=== PATIENT | female | born 1945 | race Caucasian/White ===

== ENCOUNTER → 2016-12-03 | Outpatient (CLI) | payer MEDICARE | END | disposition home or self-care (01) | LOC: LABWHC1 11:04 | PROVIDERS: ATTEND Orthopaedic Surgery | DX: Z01.812 Encounter for preprocedural laboratory examination (principal) | CPT/HCPCS: 87070 ==

== ENCOUNTER 2016-12-20 08:25 | Inpatient (IN) | payer MEDICARE ==
[2016-12-10 09:06] VITALS: BMI 34.2
--- NOTE | 2016-12-19 17:46 | HP ---
DATE OF ADMISSION: Nicole Ellsworth is a 71-year-old patient seen with progressive right knee pain. After having options regarding treatment discussed with her, she elected to proceed with right total knee arthroplasty. Consent regarding procedure obtained. Medical clearance was provided by Dr. Hosea Swann. Her past medical history is hypertension, hyperlipidemia, osteoarthritis, breast cancer. Past surgical history is cholecystectomy, bilateral knee arthroscopy, mastectomy, left total knee arthroplasty. DAILY MEDICATIONS: 1. Atenolol. 2. Hyzaar. 3. Lovastatin. 4. Xarelto. 5. Meloxicam. ALLERGIES: None. SOCIAL HISTORY: Patient denies tobacco use. PHYSICAL EVALUATION OF THE RIGHT KNEE: Her range of motion is negative to 100 degrees. There is a mild effusion present. Tenderness along the medial joint line. There is a positive medial Nelson's. There is crepitus along the medial and patellofemoral compartments with range of motion. Pain with patellofemoral compression. Ligaments are stable. Hip rotation is without pain. Distal neurovascular exam is intact. Radiographs of the right knee revealed severe medial and moderate to severe patellofemoral compartment osteoarthritis. IMPRESSION: Right knee osteoarthritis. PLAN: Right total knee arthroplasty.
[~2016-12-20 08:25] MED LIST: ACETAMINOPHEN TAB 500 MG TAB PO ONE; HYDROmorphone 1 MG/ML 1 ML SYRINGE IVP PRN; LIDOCAINE 1% 20 ML VIAL (10MG/ML) FOR IV START INTRADERMA PRN; MELOXICAM 7.5 MG TAB PO ONE; MIDAZOLAM 2 MG/2 ML VIAL IV PRN; ONDANSETRON 4 MG/2 ML VIAL IVP ONE; TRANEXAMIC ACID 1,000 MG in SODIUM CHLORIDE 0.9% 100 ML IVPB ONE; ceFAZolin 2 GM in SODIUM CHLORIDE 0.9% 100 ML IVPB ONE; fentaNYL (PF) 50 MCG/ML 20 ML VIAL IVP PRN
[2016-12-20 10:10] LABS: Appearance,Urine Turbid (Clear); Bacteria,Urine Rare /hpf; Bilirubin,Urine Negative (Negative); Glucose,Urine (UA) Negative (Negative); Ketones,Urine Negative (Negative); Leukocyte Esterase,Urine Large (Negative); Mucus,Urine Rare /hpf; Nitrite,Urine Negative (Negative); Particle Count 29348; Protein,Urine Trace (Negative); RBC,Urine 31 /hpf (0-5); Specific Gravity,Urine 1.012 (1.001-1.035); Squamous Epithelial Cell,Urine 55 /hpf (0-4); UA Billing (MACRO vs. MICRO) MICRO; Urobilinogen,Urine <2.0 mg/dL (<2.0); WBC,Urine 57 /hpf (0-5)
[2016-12-20] MEDS: LACTATED RINGERS 1,000 ML IV SCH ×4 (10:24→23:23)
[2016-12-20] MEDS ORDERED: ROPIVACAINE 1,100 MG, SODIUM CHLORIDE 0.9% 330 ML MISCELLANE PRN ×2 (11:03)
--- NOTE | 2016-12-20 11:05 | P.ONQ ---
Anesthesiology Proc Note - PNB - Peripheral Nerve Block Performed Right Adductor Canal Infusion Time Out Performed: Yes Indication: Acute Post-Operative Pain, Analgesia Specifically requested for management of pain by DrMyriam: Humphrey Scruggs Sedation Type: Sedate with meaningful contact maintained Preparation: Sterile Prep Position: Supine Catheter Depth at Skin (cm): 10 Catheter: Indwelling Needle Types: On-Q Needle Size: 100mm (4") Needle Gauge: 20 Technique: Ultrasound Injectate: 0.5% Ropivacaine (see comment for volume) (20) Blood Aspirated: No Pain Paresthesia on Injection Noted: No Resistance on Injection: Normal Events: Uneventful and Well Tolerated
[2016-12-20] MEDS ORDERED: ePHEDrine 50 MG/ML 1 ML AMP ONE (11:14)
[2016-12-20] MEDS ORDERED: GENTAMICIN 40 MG/ML 2 ML VIAL ONE (11:14)
[2016-12-20] MEDS ORDERED: TRANEXAMIC ACID 1,000 MG/10 ML VIAL ONE (11:14)
[2016-12-20] MEDS ORDERED: fentaNYL (PF) 50 MCG/ML 2 ML AMP ONE (11:14)
[2016-12-20] MEDS ORDERED: PROPOFOL 10 MG/ML 20 ML VIAL IV ONE (11:14)
[2016-12-20] MEDS ORDERED: SODIUM CHLORIDE 0.9% 100 ML BAG ONE (11:14)
[2016-12-20] MEDS ORDERED: MIDAZOLAM 2 MG/2 ML VIAL ONE (11:14)
[2016-12-20] MEDS: ROPIVACAINE 246.25 MG, EPINEPHrine 0.5 MG, KETOROLAC 30 MG, cloNIDine HCL/PF 80 MCG, WA... MISCELLANE ONE ×10 (12:06→12:34)
[2016-12-20] MEDS ORDERED: LACTATED RINGERS 1,000 ML IV ONE ×2 (12:07→13:17)
[2016-12-20] MEDS ORDERED: ceFAZolin 3,000 MG in SODIUM CHLORIDE 0.9% IRRIGATIO 3,000 ML IRRIGATION ONE (12:07)
[2016-12-20] MEDS ORDERED: hydrOXYzine PAMOATE 25 MG CAP PO PRN (13:26)
[2016-12-20] MEDS ORDERED: ONDANSETRON 4 MG/2 ML VIAL IVP PRN (13:26)
[2016-12-20] MEDS ORDERED: HYDROmorphone 1 MG/ML 1 ML SYRINGE IVP PRN ×3 (13:26)
[2016-12-20] MEDS ORDERED: HYDROcodone/APAP 7.5-325MG 1 EACH TAB PO PRN (13:26)
[2016-12-20] MEDS ORDERED: NALOXONE 0.4 MG/ML 1 ML VIAL IV PRN (13:26)
[2016-12-20] MEDS ORDERED: TEMAZEPAM 15 MG CAP PO PRN (13:26)
--- NOTE | 2016-12-20 13:27 | P.OP ---
Date of Procedure: 12/20/16 Preoperative Diagnosis: Right knee osteoarthritis Postoperative Diagnosis: Right knee osteoarthritis Procedure(s) Performed: Right total knee arthroplasty Implants: 1. Milly persona size 8 narrow right cemented cruciate retaining femoral component 2. Milly persona size E right cemented tibial component 3. Milly persona 10 mm right medial congruent polyethylene tibial insert 4. Milly persona 35 mm all polyethylene cemented patella Anesthesia: regional (Adductor canal block), local, spinal Surgeon: Humphrey Scruggs Food Consultant #1: George Valdovinos Estimated Blood Loss (ml): 50 Pathology: other (Bone) Condition: stable Disposition: PACU Indications for Procedure: 71-year-old patient seen with symptomatic right knee osteoarthritis. After having treatment options discussed, she elected to proceed with right total knee arthroplasty. Operative Findings: See description of procedure Description of Procedure: Patient was taken to the operative suite. Patient underwent a spinal anesthetic by the department of anesthesia. Patient was given preoperative IV intake antibiotics and TXA. A well-padded tourniquet was placed about the right lower extremity. The lower extremity was then prepped and draped in the normal sterile orthopedic fashion. The extremity was elevated, a tourniquet was insufflated to 350. A standard anterior incision was made sharply through skin. Dissection was taken down through the subcutaneous soft tissues down to the extensor mechanism. A medial arthrotomy was performed, patella was everted and knee was flexed. There was advanced osteoarthritis noted. A proximal tibial cutting guide was positioned. Proximal tibial cut was made. A distal intramedullary femoral cutting guide was positioned, distal femoral cut made. We placed the appropriate sizing guide and selected the appropriate size. A distal 4-in-1 femoral cutting block was positioned, distal femoral cuts were made. We now placed a trial femoral component into position, along with an appropriate size tibial tray and insert. We now took the knee through range of motion and had full extension good flexion and good overall soft tissue balance noted. The patella was everted and a flush cut made with patellar quad tendon. We templated the patella, appropriate drill holes were made. An appropriate trial patella was positioned, knee was taken through full range of motion with the patella tracking very nicely. The trial patella was removed. Drill holes were made through the femoral component. All trial components were removed after marking off the appropriate rotation of the tibia. Retractors were now positioned along the proximal tibia. An appropriate keel punch was made with the appropriate size tibial guide. At this point appropriate size implants were chosen and opened. The joint was irrigated copiously with pulse lavage mechanical irrigation. We mixed antibiotic methylmethacrylate. The deep soft tissues were infiltrated with local analgesic. Once the methyl methacrylate was ready, the tibial component was cemented into place removing any excess methylmethacrylate. The femoral component was cemented into place removing the removing any excess methylmethacrylate. We then inserted the appropriate size polyethylene tibial insert. We made sure that it was locked into position. We took the knee into full extension, and then back in a flexion making sure we had removed any excess methylmethacrylate. The patellar component was then cemented down and secured with clamp. Excess methylmethacrylate removed. We kept the knee in full extension, patellar clamp in position until methylmethacrylate had hardened. Once it had hardened the patellar clamp was removed. The knee was taken through full range of motion. The patella tracked nicely. There was good soft tissue balancing. The tourniquet was now released. Additional hemostasis was achieved via electrocautery. The superficial soft tissues were infiltrated local analgesic. A second gram of TXA was given. The extensor mechanism was repaired with Vicryl. We checked the repair with range of motion and it was stable. The subcutaneous soft tissues were repaired with Vicryl in layers. The skin was approximated with pernio/Dermabond. Sterile dressings were applied followed by loose web roll and Higinio bandage. The patient was transferred to a bed, and taken to recovery in stable and satisfactory condition. George ROQUE assisted with the procedure.
--- NOTE | 2016-12-20 14:16 | XR ---
EXAMINATION TYPE: XR knee limited RT DATE OF EXAM: 12/20/2016 2:11 PM COMPARISON: NONE TECHNIQUE: two view submitted HISTORY: Post op FINDINGS: There is a prosthetic knee in near anatomic alignment. There is soft tissue edema and emphysema. IMPRESSION: 1. Postoperative change. Appears in near-anatomic alignment
[2016-12-20] MEDS: traMADol 50 MG TAB PO SCH ×2 (16:24→23:08)
[2016-12-20] MEDS: ceFAZolin 2 GM in SODIUM CHLORIDE 0.9% 100 ML IVPB SCH ×2 (16:25→23:08)
--- NOTE | 2016-12-20 19:45 | P.CONS ---
History of Present Illness - Reason for Consult Consult date: 12/20/16 Medical management Requesting physician: Humphrey Scruggs - Chief Complaint right knee arthroplasty - History of Present Illness 71-year-old pleasant lady patient of Dr. Swann. She has underlying history of hypertension hypertensive cardiovascular disease hyperlipidemia or shortness right this breast cancer 2012 right side, 2006 left side, admitted under the service of Dr. Scruggs for right total knee arthroplasty secondary to advanced DJD, patient's doing well postoperatively without any nausea vomiting no chest pain no shortness of breath, patient's medically stable no confusion. She denies any prior history of postoperative day complications including any venothromboembolism Review of Systems Constitutional: Reports as per HPI, Denies anorexia, Denies chills, Denies chronic headaches, Denies chronic pain, Denies daytime sleepiness, Denies fatigue, Denies fever, Denies lethargy, Denies malaise, Denies night sweats, Denies poor appetite, Denies sweats, Denies weakness, Denies weight gain, Denies weight loss Ears, nose, mouth and throat: Reports as per HPI, Denies ant. neck pain, Denies bleeding gums, Denies dental pain, Denies dysphagia, Denies epistaxis, Denies headache, Denies hoarseness, Denies mouth pain, Denies nasal congestion, Denies nasal discharge, Denies neck fullness/pressure, Denies neck lump, Denies nose pain, Denies odynophagia, Denies post-nasal drip, Denies sinus pain, Denies sinus pressure, Denies swelling in mouth, Denies swelling in throat, Denies sore throat, Denies vertigo, Denies voice changes Cardiovascular: Reports as per HPI, Denies chest pain, Denies claudication, Denies decreased exercise tolerance, Denies dyspnea on exertion, Denies edema, Denies high blood pressure, Denies irregular heart beat, Denies leg edema, Denies lightheadedness, Denies orthopnea, Denies palpitations, Denies paroxysmal nocturnal dyspnea, Denies phlebitis, Denies rapid heart beat, Denies shortness of breath, Denies syncope Respiratory: Reports as per HPI, Denies congestion, Denies cough, Denies cough with sputum, Denies dyspnea, Denies excessive sputum, Denies hemoptysis, Denies home oxygen, Denies pain, Denies pain on inspiration, Denies pleurisy, Denies respiratory infections, Denies sleep apnea, Denies snoring, Denies wheezing Gastrointestinal: Reports as per HPI, Denies abdominal pain, Denies belching, Denies bloating, Denies BRBPR, Denies change in bowel habits, Denies coffee ground emesis, Denies constipation, Denies diarrhea, Denies dyspepsia, Denies early satiety, Denies excessive gas, Denies heartburn, Denies hematemesis, Denies hematochezia, Denies indigestion, Denies jaundice, Denies lactose intolerance, Denies loss of appetite, Denies melena, Denies nausea, Denies vomiting Genitourinary: Reports as per HPI, Denies abnormal vaginal bleeding, Denies decreased libido, Denies difficulty conceiving, Denies difficulty voiding, Denies dysmenorrhea, Denies dyspareunia, Denies dysuria, Denies flank pain, Denies genital sores, Denies hematuria, Denies hot flashes, Denies incomplete emptying, Denies kidney stones, Denies menorrhagia, Denies mixed incontinence, Denies nocturia, Denies pelvic pain, Denies post void dribbling, Denies , Denies prolapse symptoms, Denies stress incontinence, Denies urge incontinence , Denies urgency, Denies urinary frequency, Denies vaginal discharge, Denies vaginal dryness, Denies vaginal itching, Denies vaginal odor Menstruation: Reports as per HPI, Denies amenorrhea, Denies amenorrhea on BC, Denies currently menstrual, Denies cycle < 21 days, Denies cycle > 35 days, Denies cycle variable, Denies menses 1-7 days, Denies menses 8 or > days, Denies menses variable, Denies period heavy, Denies period light, Denies period normal, Denies period spotting, Denies post hysterectomy, Denies postmenopausal , Denies premenarcheal Integumentary: Reports as per HPI, Denies acne, Denies boils, Denies brittle nails, Denies change in hair/nails, Denies color changes, Denies darkening of skin, Denies depigmentation, Denies dryness, Denies foot/leg ulcers, Denies growths, Denies hirsutism, Denies lesions, Denies onychomycosis, Denies pruritus , Denies rash, Denies sores, Denies striae, Denies unusual bruising, Denies wounds Neurological: Reports as per HPI, Denies aphasia, Denies ataxia, Denies balance difficulties, Denies burning pain, Denies change in mentation, Denies change in smell/taste, Denies change in speech, Denies confusion, Denies convulsions, Denies double vision, Denies gait dysfunction, Denies head injury, Denies headaches, Denies hearing difficulties, Denies lack of coordination, Denies loss of vision, Denies memory loss, Denies migraines, Denies motor disturbance, Denies numbness, Denies paralysis, Denies paresthesias, Denies seizures, Denies sensory deficit, Denies spasticity, Denies syncope, Denies tic, Denies tingling , Denies transient paralysis, Denies tremors, Denies vertigo, Denies weakness, Denies visual changes Endocrine: Reports as per HPI, Denies cold intolerance, Denies deepening of the voice, Denies excessive sweating, Denies excessive thirst, Denies fatigue, Denies flushing, Denies heat intolerance, Denies high blood sugars, Denies increase in ring/shoe/hat size, Denies low blood sugars, Denies nocturia, Denies palpitations, Denies polydipsia, Denies polyphagia, Denies polyuria, Denies proptosis, Denies recent glucocorticoid use, Denies thyroid mass, Denies weight change Hematologic/Lymphatic: Reports as per HPI, Denies easy bleeding, Denies easy bruising, Denies lymphadenopathy, Denies lymphedema, Denies thrombophilia Allergic/Immunologic: Reports as per HPI, Denies allergic rhinitis, Denies anaphylaxis, Denies angioedema, Denies gluten intolerance, Denies persistent infections, Denies seasonal allergies, Denies urticaria, Denies wheezing Past Medical History Past Medical History: Cancer, Hyperlipidemia, Hypertension, Osteoarthritis (OA) Additional Past Medical History / Comment(s): hx migraines, breast cancer, ANEMIA, History of Any Multi-Drug Resistant Organisms: None Reported Past Surgical History: Adenoidectomy, Breast Surgery, Cholecystectomy, Orthopedic Surgery, Tonsillectomy Additional Past Surgical History / Comment(s): LEFT TOTAL KNEE 03/17. RIGHT LUMPECTOMY WITH RADIATION AND THEN johnson mastectomy WITH CHEMO. d&c,rectal sphincter muscle surgery, johnson knee arthroscopic, left shoulder rotator cuff tear repair, colonoscopy i, Past Anesthesia/Blood Transfusion Reactions: Postoperative Nausea & Vomiting ( PONV) Past Psychological History: Anxiety Smoking Status: Never smoker Past Alcohol Use History: Occasional Past Drug Use History: None Reported - Past Family History Father Family Medical History: Cancer Additional Family Medical History / Comment(s): COLON CANCER Mother Family Medical History: Cancer Additional Family Medical History / Comment(s): LEUKEMIA Brother(s) Family Medical History: No Reported History Sister(s) Family Medical History: No Reported History Daughter(s) Family Medical History: No Reported History Son(s) Family Medical History: No Reported History Medications and Allergies Home Medications Medication Instructions Recorded Confirmed Type Atenolol [Tenormin] 12.5 mg PO HS 05/01/14 12/20/16 History LORazepam [Ativan] 1 mg PO TID PRN 05/01/14 12/20/16 History Losartan/Hydrochlorothiazide 1 tab PO QAM 05/01/14 12/20/16 History [Losartan-Hctz 100-25 mg Tab] Lovastatin [Mevacor] 40 mg PO HS 05/01/14 12/20/16 History Exemestane [Exemestane] 25 mg PO QAM 02/19/15 12/20/16 History Multivitamins, Thera [Theragran] 1 tab PO DAILY 02/19/15 12/20/16 History Acetaminophen Tab [Tylenol Tab] 650 mg PO Q4H PRN 12/10/16 12/20/16 History Calcium Carbonate/Vitamin D3 1 tab PO DAILY 12/10/16 12/20/16 History [Calcium 500-Vit D3 600 Tablet] Estrogens, Conjugated Cream 1 tube VAGINAL DIRECTED 12/20/16 12/20/16 History [Premarin Cream] Allergies Allergy/AdvReac Type Severity Reaction Status Date / Time adhesive tape AdvReac Mild Rash/Hives Uncoded 12/10/16 08:21 Physical Exam Vitals: Vital Signs Temp Pulse Resp BP Pulse Ox 12/20/16 17:15 80 126/71 12/20/16 17:00 68 131/66 12/20/16 16:45 68 133/66 12/20/16 16:30 71 128/88 12/20/16 16:15 67 131/63 12/20/16 16:00 63 127/75 12/20/16 15:45 61 132/70 12/20/16 15:30 97.1 F L 66 16 109/61 100 12/20/16 14:53 62 16 128/61 12/20/16 14:38 62 16 131/60 12/20/16 14:23 62 16 130/59 12/20/16 14:08 53 L 16 124/60 12/20/16 13:53 97.7 F 69 14 130/60 12/20/16 08:53 97.6 F 64 16 149/77 Intake and Output 12/20/16 12/20/16 12/20/16 06:59 14:59 22:59 Intake Total 2501 Output Total 260 Balance 2241 Intake: IV 2501 Output: Urine 210 Estimated Blood Loss 50 - Constitutional General appearance: cooperative, no acute distress, obese - EENT Eyes: anicteric sclerae, fundus normal, dentition normal, normal appearance ENT: hard of hearing, NA/AT, normal oropharynx - Respiratory Respiratory: bilateral: CTA, negative: diminished, dullness, rales, rhonchi - Cardiovascular Rhythm: regular Heart sounds: normal: S1, S2 - Gastrointestinal General gastrointestinal: decreased bowel sounds, normal bowel sounds - Integumentary Integumentary: normal, normal turgor - Neurologic Neurologic: CNII-XII intact - Musculoskeletal Musculoskeletal: strength equal bilaterally - Psychiatric Psychiatric: A&O x's 3, appropriate affect, intact judgment & insight Results Labs: Abnormal Lab Results - Last 24 Hours (Table) 12/20/16 Range/Units 09:50 Urine Appearance Turbid H (Clear) Urine Protein Trace H (Negative) Urine Blood Trace H (Negative) Ur Leukocyte Esterase Large H (Negative) Urine RBC 31 H (0-5) /hpf Urine WBC 57 H (0-5) /hpf Ur Squamous Epith Cells 55 H (0-4) /hpf Urine Bacteria Rare H (None) /hpf Urine Mucus Rare H (None) /hpf Laboratory Results Urine Color Yellow 12/20/16 09:50 Urine Appearance Turbid (Clear) H 12/20/16 09:50 Urine pH 6.0 (5.0-8.0) 12/20/16 09:50 Ur Specific [place] 1.012 (1.001-1.035) 12/20/16 09:50 Urine Protein Trace (Negative) H 12/20/16 09:50 Urine Glucose (UA) Negative (Negative) 12/20/16 09:50 Urine Ketones Negative (Negative) 12/20/16 09:50 Urine Blood Trace (Negative) H 12/20/16 09:50 Urine Nitrite Negative (Negative) 12/20/16 09:50 Urine Bilirubin Negative (Negative) 12/20/16 09:50 Urine Urobilinogen <2.0 mg/dL (<2.0) 12/20/16 09:50 Ur Leukocyte Esterase Large (Negative) H 12/20/16 09:50 Urine RBC 31 /hpf (0-5) H 12/20/16 09:50 Urine WBC 57 /hpf (0-5) H 12/20/16 09:50 Ur Squamous Epith Cells 55 /hpf (0-4) H 12/20/16 09:50 Urine Bacteria Rare /hpf (None) H 12/20/16 09:50 Urine Mucus Rare /hpf (None) H 12/20/16 09:50 Assessment and Plan Plan: 1. Right total knee arthroplasty on 12/20/2016, patient's doing well, she is receiving analgesic in on-Q bupivacaine pain pump control on the right thigh, incentive spirometry . She will need to be on DVT prophylaxis for at least 4 weeks, I suggest a factor X A inhibitors on discharge secondary high risk profile. currently on lovenox sq 30 q12 therapies is following closely with anticipated discharge to home therapies 2. Asymptomatic pyuria, patient was started on IV antibiotics has 3 total doses of cefazolin until cultures would be obtained, she has a new prostatic device in the right knee 3. Hypertension on losartan HCTZ 100 mg to be started on 12/21 4. Hyperlipidemia on statin mevacor 5. prior history of breast cancer bilateral 2005, 2013 Discharge planning anticipate discharge to home therapies DVT prophylaxis he would start the patient on Xarelto 10, once daily upon discharge, continue lovenox till then Thank you Dr. Scruggs allowing us to participate in her care. Patient. Please do not hesitate in contacting us should there be any questions regarding her care,
[2016-12-20] MEDS ORDERED: LORazepam 1 MG TAB PO PRN (19:51)
[2016-12-20] MEDS: HYDROcodone/APAP 7.5-325MG 1 EACH TAB PO PRN (20:24)
[2016-12-20] MEDS: SENNOSIDES-DOCUSATE SODIUM 1 EACH TAB PO SCH (20:24)
[2016-12-20] MEDS: ATENOLOL 12.5 MG TAB PO SCH (23:08)
[2016-12-20] MEDS: ATORVASTATIN 10 MG TAB PO SCH (23:08)
[2016-12-21] MEDS: HYDROcodone/APAP 7.5-325MG 1 EACH TAB PO PRN ×3 (02:39→17:54)
[2016-12-21 07:21] LABS: Basophils % (A) 0 %; CH 29.8; CHCM 33.7; Eosinophils % (A) 0 %; HCT 33.2 % (34.0-46.0); HDW 2.61; HGB 10.9 gm/dL (11.4-16.0); Luc # (Auto) 0.16; Luc % (Auto) 1; Lymphocytes # (A) 1.1 k/uL (1.0-4.8); Lymphocytes % (A) 8 %; MCH 29.1 pg (25.0-35.0); MCHC 32.8 g/dL (31.0-37.0); MCV 88.7 fL (80.0-100.0); Monocytes # (A) 0.6 k/uL (0-1.0); Monocytes % (A) 5 %; Neutrophils # (A) 11.4 k/uL (1.3-7.7); Neutrophils % (A) 86 %; RBC 3.74 m/uL (3.80-5.40); RDW 13.3 % (11.5-15.5); WBC 13.3 k/uL (3.8-10.6); WBC (Perox) 14.42
[2016-12-21 08:09] LABS: Anion Gap 12 mmol/L; Blood Urea Nitrogen 19 mg/dL (7-17); Calcium 9.4 mg/dL (8.4-10.2); Carbon Dioxide 24 mmol/L (22-30); Chloride 102 mmol/L (98-107); Glucose 114 mg/dL (74-99); Non-African American GFR(MDRD) 51 (>60 ml/min/1.73 sqM); Potassium 4.5 mmol/L (3.5-5.1); Sodium 138 mmol/L (137-145)
[2016-12-21] MEDS: LOSARTAN-HCTZ 50-12.5 MG 1 EACH TAB PO SCH (08:39)
[2016-12-21] MEDS: ENOXAPARIN 30 MG/0.3 ML SYRINGE SQ SCH ×2 (08:40→20:02)
[2016-12-21] MEDS: FAMOTIDINE 20 MG TAB PO SCH (08:40)
[2016-12-21] MEDS: CALCIUM CARB-VIT D 500MG-200UN 1 EACH TAB PO SCH (08:41)
[2016-12-21] MEDS: MELOXICAM 7.5 MG TAB PO SCH (08:41)
[2016-12-21] MEDS: MULTIVITAMINS, THERA 1 EACH TAB PO SCH (08:42)
[2016-12-21] MEDS: traMADol 50 MG TAB PO SCH ×4 (08:43→21:16)
[2016-12-21] MEDS ORDERED: EXEMESTANE 25 MG PO SCH (09:00)
--- NOTE | 2016-12-21 10:53 | P.PN ---
Subjective Principal diagnosis: Status post right total knee arthroplasty Patient is seen today resting in her hospital chair, she appears to be in no acute distress. Pain is controlled with current medication. She is ambulated with therapy. She denies any headaches, lightheadedness, chest pain, shortness of breath, nausea or vomiting. Objective - Vital Signs Vital signs: Vital Signs Temp 97.9 F 12/21/16 07:00 Pulse 56 L 12/21/16 08:00 Resp 16 12/21/16 08:00 BP 91/51 12/21/16 07:00 Pulse Ox 95 12/21/16 07:00 Intake & Output 12/20/16 12/21/16 12/21/16 18:59 06:59 18:59 Intake Total 2501 880 Output Total 260 700 95 Balance 2241 180 -95 Weight 93.44 kg Intake: IV 2501 Intake, IV Titration 880 Amount Lactated Ringers 1,000 ml 880 @ 80 mls/hr IV .[id number] [facility] Rx#:[id number] Output: Urine 210 700 95 Uretheral (Ibar[place]) 700 Estimated Blood Loss 50 Other: Voiding Method Indwelling Catheter - Exam Right lower extremity: Incision is clean, dry and intact. Minimal ecchymosis present on the medial and lateral aspects of the incision. Calf is soft, no tenderness with palpation. Plantar flexion, dorsiflexion, EHL, FHL are intact. Sensory exam to light touch throughout the extremities intact, cap refills is 3 seconds. - Labs CBC & Chem 7: 12/21/16 07:04 12/21/16 07:04 Labs: Abnormal Lab Results - Last 24 Hours (Table) 12/21/16 12/21/16 Range/Units 07:04 07:04 WBC 13.3 H (3.8-10.6) k/uL RBC 3.74 L (3.80-5.40) m/uL Hgb 10.9 L (11.4-16.0) gm/dL Hct 33.2 L (34.0-46.0) % Neutrophils # 11.4 H (1.3-7.7) k/uL BUN 19 H (7-17) mg/dL Creatinine 1.06 H (0.52-1.04) mg/dL Glucose 114 H (74-99) mg/dL Assessment and Plan Plan: Assessment: 1. Postop day #1 status post right total knee arthroplasty Plan: 1. Pain control, continue use of oral medications 2. Daily dressing changes/ice and elevate 3. Continue physical therapy and CPM 4. Encourage incentive spirometer 5. GI and DVT prophylaxis, continue Lovenox, anticipate discharge home on Xarelto 10 mg once a day 6. Medical recommendations 7. Discharge planning: Patient will be discharged home tomorrow Time with Patient: Less than 30
--- NOTE | 2016-12-21 10:55 | P.DS ---
Providers Date of admission: 12/20/16 08:25 Expected date of discharge: 12/22/16 Attending physician: Humphrey Scruggs Consults: 12/20/16 13:26 Consult Physician Routine Consulting Provider: Esmer Reese Consult Reason/Comments: Medical management Do you want consulting provider notified?: Yes Primary care physician: [facility] Course: Date of admission: 12/20/2016 Date of discharge: 12/22/2016 Admission diagnosis: Status post right total knee arthroplasty Discharge diagnosis: Same Attending physician: Dr. Scruggs Surgical procedures: Right total knee arthroplasty Brief history: Patient is a 71-year-old female with a history of progressive primary right knee osteoarthritis. At this point patient has failed conservative treatment measures and has opted to proceed with a elective right total knee arthroplasty. Hospital course: Details of patient's surgery can be found in operative report. Patient tolerated the procedure well and was subsequently transported to orthopedic floor. Patient's orthopeidc and medical care was provided daily. Patient had daily laboratory tests performed for evaluation of overall blood counts. Patient had daily physical therapy to include strengthening range of motion as well as education with walker ambulation. Patient had daily CPM usage as part of their physical therapy program. Patient was treated with Lovenox for their postoperative DVT prophylaxis during their inpatient stay. Patient was noted to have a relatively uneventful postoperative course. Patient reported satisfactory pain control with oral pain medications by postoperative day 0. Patient showed satisfactory progress with physical therapy. Patient moved steadily through the program and had no difficulty meeting the goals by postoperative day 2. Given patient's otherwise satisfactory course and having met physical therapy goals, plan is to discharge patient home on postoperative day 2. Discharge condition/disposition: Patient will be discharged home in stable condition. Discharge medications: Instructions are given on resumption of patient's normal daily medications per primary care recommendation, in addition patient will be prescribed Xarelto 10mg, Colace 100mg, Pepcid 20mg, Clearwater 7.5mg/325mg, Tramadol 50mg . Discharge instructions: 1. Wound care and infection precautions, keep incision dry and covered while showering, no lotions, creams, moisturizers. No soaking, tubs, pools, hottubs. Do not scrub over the incision. 2. Weight-bear as tolerated with walker / cane until follow-up. 3. Ice and elevate when necessary. Do not exceed 20 minutes per hour with ice pack. 4. Utilize compression sleeve until seen at first follow up appointment. 5. Visiting nursing care. 6. Home physical therapy including home CPM. 7. Pain meds and anticoagulants per prescription. 8. Pain medication has potential to cause constipation. Increase oral fluid and fiber intake. Contact primary care provider if you have not had a bowel movement within 48 hours after discharge 9. No anti-inflammatory medication until discussed at first post operative visit, this including Motrin, Aleve, Mobic, Diclofenac. 10. Follow up in office at 2 weeks postop with Remi Vladovinos PA-C 11. Follow up with your primary care doctor 7-10 days after discharge. 12. Contact [facility] with any questions, . Procedures: Right total knee arthroplasty Patient Condition at Discharge: Good Plan - Discharge Summary New Discharge Prescriptions: Docusate [Colace] 100 mg PO DAILY #30 capsule Famotidine [Pepcid] 20 mg PO DAILY #30 tablet HYDROcodone/APAP 7.5-325MG [Clearwater 7.5] 1 - 2 each PO Q6HR PRN #60 tab PRN Reason: Pain Rivaroxaban [Xarelto] 10 mg PO DAILY #12 tab traMADol HCl [Ultram] 50 mg PO Q6H PRN #40 tab PRN Reason: Pain Discharge Medication List Atenolol [Tenormin] 12.5 mg PO HS 05/01/14 [History] LORazepam [Ativan] 1 mg PO TID PRN 05/01/14 [History] Losartan/Hydrochlorothiazide [Losartan-Hctz 100-25 mg Tab] 1 tab PO QAM [History] Lovastatin [Mevacor] 40 mg PO HS 05/01/14 [History] Exemestane [Exemestane] 25 mg PO QAM 02/19/15 [History] Multivitamins, Thera [Theragran] 1 tab PO DAILY 02/19/15 [History] Acetaminophen Tab [Tylenol Tab] 650 mg PO Q4H PRN 12/10/16 [History] Calcium Carbonate/Vitamin D3 [Calcium 500-Vit D3 600 Tablet] 1 tab PO DAILY 07/19 [History] Estrogens, Conjugated Cream [Premarin Cream] 1 tube VAGINAL DIRECTED [History] Rivaroxaban [Xarelto] 10 mg PO DAILY #12 tab 12/21/16 [Rx] Docusate [Colace] 100 mg PO DAILY #30 capsule 12/22/16 [Rx] Famotidine [Pepcid] 20 mg PO DAILY #30 tablet 12/22/16 [Rx] HYDROcodone/APAP 7.5-325MG [Clearwater 7.5] 1 - 2 each PO Q6HR PRN #60 tab 12/22/16 [ Rx] traMADol HCl [Ultram] 50 mg PO Q6H PRN #40 tab 12/22/16 [Rx] Follow up Appointment(s)/Referral(s): [facility], [NON-STAFF] - 1 Week George Valdovinos PAC [PHYSICIAN VOCAL ARTIST] - 2 Weeks Activity/Diet/Wound Care/Special Instructions: Orthopedic Discharge Instructions: 1. Wound care and infection precautions, keep incision dry and covered while showering, no lotions, creams, moisturizers. No soaking, pools, hot tubs. Do not scrub over incision. 2. Weight-bear as tolerated with walker / cane until follow-up. 3. Ice and elevate when necessary. Do not exceed 20 minutes per hour with ice pack. 4. Utilize compression sleeve until seen at first follow up appointment. 5. Visiting nursing care. 6. Home physical therapy including home CPM. 7. Pain meds and anticoagulants per prescription. 8. Pain medication has potential to cause constipation. Increase oral fluid and fiber intake. Contact primary care provider if you have not had a bowel movement within 48 hours after discharge. 9. No anti-inflammatory medication until discussed at first post operative visit, this including Motrin, Aleve, Mobic, Diclofenac. 10. Follow up in office at 2 weeks postop with Remi Valdovinos PA-C 11. Follow up with your primary care doctor 7-10 days after discharge. 12. Contact [facility] with any questions, . Discharge Disposition: HOME WITH HOME HEALTH SERVICES
--- NOTE | 2016-12-21 12:35 | P.PN ---
Progress Note - Text 0635 anesthesia POD 1. Patient is status post right TKR under spinal anesthesia with a right adductor canal catheter placed for postoperative pain relief. Catheter site is clean dry with the dressing intact. Ropivacaine 0.2% is infusing at 8 mL per hour resulting in a VAS of (0, 2).
[2016-12-21] MEDS: LACTATED RINGERS 1,000 ML IV SCH (14:53)
[2016-12-21] MEDS: ATENOLOL 12.5 MG TAB PO SCH (19:58)
[2016-12-21] MEDS: SENNOSIDES-DOCUSATE SODIUM 1 EACH TAB PO SCH (20:00)
[2016-12-21] MEDS: ATORVASTATIN 10 MG TAB PO SCH (20:02)
[2016-12-22 00:01] LABS: Glucose,Whole Blood 83 mg/dL (75-99)
[2016-12-22] MEDS: LACTATED RINGERS 1,000 ML IV SCH ×2 (00:12)
[2016-12-22 01:52] VITALS: TEMP 98.7
[2016-12-22] MEDS: HYDROcodone/APAP 7.5-325MG 1 EACH TAB PO PRN ×2 (05:12→11:31)
[2016-12-22 07:24] VITALS: BP 139/64; PULSE 67; RESP 16
[2016-12-22] MEDS: CALCIUM CARB-VIT D 500MG-200UN 1 EACH TAB PO SCH (08:16)
[2016-12-22] MEDS: FAMOTIDINE 20 MG TAB PO SCH (08:16)
[2016-12-22] MEDS: ENOXAPARIN 30 MG/0.3 ML SYRINGE SQ SCH (08:16)
[2016-12-22] MEDS: LOSARTAN-HCTZ 50-12.5 MG 1 EACH TAB PO SCH (08:16)
[2016-12-22] MEDS: MULTIVITAMINS, THERA 1 EACH TAB PO SCH (08:16)
[2016-12-22] MEDS: traMADol 50 MG TAB PO SCH (08:17)
[2016-12-22] MEDS: MELOXICAM 7.5 MG TAB PO SCH (08:17)
--- NOTE | 2016-12-22 10:03 | P.PN ---
Subjective Principal diagnosis: Status post right total knee arthroplasty Patient is seen today resting in her hospital chair, she appears to be in no acute distress. Pain is controlled with current medication. She is ambulated with therapy. She denies any headaches, lightheadedness, chest pain, shortness of breath, nausea or vomiting. Objective - Vital Signs Vital signs: Vital Signs Temp 98.7 F 12/22/16 07:00 Pulse 67 12/22/16 07:00 Resp 16 12/22/16 07:00 BP 139/64 12/22/16 07:00 Pulse Ox 92 L 12/22/16 07:00 Intake & Output 12/21/16 12/22/16 12/22/16 18:59 06:59 18:59 Intake Total 1200 180 Output Total 595 Balance 605 180 Weight 93.44 kg Intake: Intake, IV Titration 480 Amount Lactated Ringers 1,000 ml 480 @ 80 mls/hr IV .[id number] [facility] Rx#:[id number] Oral 720 180 Output: Urine 595 Uretheral (Ibarra) 200 Other: Voiding Method Toilet Toilet # Voids 1 1 - Exam Right lower extremity: Incision is clean, dry and intact. Minimal ecchymosis present on the medial and lateral aspects of the incision. Calf is soft, no tenderness with palpation. Plantar flexion, dorsiflexion, EHL, FHL are intact. Sensory exam to light touch throughout the extremities intact, cap refills is 3 seconds. - Labs CBC & Chem 7: 12/21/16 07:04 12/21/16 07:04 Labs: Microbiology - Last 24 Hours (Table) 12/20/16 22:15 Urine Culture - Preliminary Urine,Catheterized Assessment and Plan Plan: Assessment: 1. Postop day #2 status post right total knee arthroplasty Plan: 1. Pain control, continue use of oral medications 2. Daily dressing changes/ice and elevate 3. Continue physical therapy and CPM 4. Encourage incentive spirometer 5. GI and DVT prophylaxis, continue Lovenox, anticipate discharge home on Xarelto 10 mg once a day 6. Medical recommendations 7. Discharge planning: Patient will be discharged home today Time with Patient: Less than 30
--- NOTE | 2016-12-22 12:07 | P.PN ---
Subjective 71-year-old pleasant lady patient of Dr. Swann. She has underlying history of hypertension hypertensive cardiovascular disease hyperlipidemia or shortness right this breast cancer 2012 right side, 2005 left side, admitted under the service of Dr. Scruggs for right total knee arthroplasty secondary to advanced DJD, patient's doing well postoperatively without any nausea vomiting no chest pain no shortness of breath, patient's medically stable no confusion. She denies any prior history of postoperative day complications including any venothromboembolism 12/21: Patient started on ceftriaxone for UTI. Pain is controlled today. Patient to increase activity. Anticipate discharge tomorrow. Patient will be on Xarelto for DVT prophylaxis. Objective - Vital Signs Vital signs: Vital Signs Temp 97.9 F 12/21/16 07:00 Pulse 56 L 12/21/16 08:00 Resp 16 12/21/16 08:00 BP 91/51 12/21/16 07:00 Pulse Ox 95 12/21/16 07:00 Intake & Output 12/20/16 12/21/16 12/21/16 18:59 06:59 18:59 Intake Total 2501 880 Output Total 260 700 295 Balance 2241 180 -295 Weight 93.44 kg Intake: IV 2501 Intake, IV Titration 880 Amount Lactated Ringers 1,000 ml 880 @ 80 mls/hr IV .[id number] [facility] Rx#:[id number] Output: Urine 210 700 295 Uretheral (Ibarra) 700 200 Estimated Blood Loss 50 Other: Voiding Method Indwelling Catheter - Exam General appearance: cooperative, no acute distress, obese - EENT Eyes: anicteric sclerae, fundus normal, dentition normal, normal appearance ENT: hard of hearing, NA/AT, normal oropharynx - Respiratory Respiratory: bilateral: CTA, negative: diminished, dullness, rales, rhonchi - Cardiovascular Rhythm: regular Heart sounds: normal: S1, S2 - Gastrointestinal General gastrointestinal: decreased bowel sounds, normal bowel sounds - Integumentary Integumentary: normal, normal turgor - Neurologic Neurologic: CNII-XII intact - Musculoskeletal Musculoskeletal: strength equal bilaterally - Psychiatric Psychiatric: A&O x's 3, appropriate affect, intact judgment & insight - Labs CBC & Chem 7: 12/21/16 07:04 12/21/16 07:04 Labs: Abnormal Lab Results - Last 24 Hours (Table) 12/21/16 12/21/16 Range/Units 07:04 07:04 WBC 13.3 H (3.8-10.6) k/uL RBC 3.74 L (3.80-5.40) m/uL Hgb 10.9 L (11.4-16.0) gm/dL Hct 33.2 L (34.0-46.0) % Neutrophils # 11.4 H (1.3-7.7) k/uL BUN 19 H (7-17) mg/dL Creatinine 1.06 H (0.52-1.04) mg/dL Glucose 114 H (74-99) mg/dL Microbiology - Last 24 Hours (Table) 12/20/16 22:15 Urine Culture - Preliminary Urine,Catheterized Assessment and Plan Plan: 1. Right total knee arthroplasty on 12/20/2016, patient's doing well, she is receiving analgesic in on-Q bupivacaine pain pump control on the right thigh, incentive spirometry . She will need to be on DVT prophylaxis for at least 4 weeks, I suggest a factor X A inhibitors on discharge secondary high risk profile. currently on lovenox sq 30 q12 therapies is following closely with anticipated discharge to home therapies 2. Asymptomatic pyuria, patient was started on IV antibiotics has 3 total doses of cefazolin until cultures would be obtained, she has a new prostatic device in the right knee 3. Hypertension on losartan HCTZ 100 mg to be started on 12/21 4. Hyperlipidemia on statin mevacor 5. prior history of breast cancer bilateral 2005, 2013 Discharge planning anticipate discharge to home therapies DVT prophylaxis he would start the patient on Xarelto 10, once daily upon discharge, continue lovenox till then Impression and plan of care have been directed as dictated by the signing physician. Marilyn Fleming nurse practitioner acting as scribe for signing physician. Time with Patient: Greater than 30
--- NOTE | 2016-12-22 14:26 | P.PN ---
Subjective 71-year-old pleasant lady patient of Dr. Swann. She has underlying history of hypertension hypertensive cardiovascular disease hyperlipidemia or shortness right this breast cancer 2012 right side, 2005 left side, admitted under the service of Dr. Scruggs for right total knee arthroplasty secondary to advanced DJD, patient's doing well postoperatively without any nausea vomiting no chest pain no shortness of breath, patient's medically stable no confusion. She denies any prior history of postoperative day complications including any venothromboembolism 12/21: Patient started on ceftriaxone for UTI. Pain is controlled today. Patient to increase activity. Anticipate discharge tomorrow. Patient will be on Xarelto for DVT prophylaxis. 12/22: She is scheduled for discharge today. Urine culture is showing no growth at 18 hours and was finalized. No antibiotics will be given at discharge. Objective - Vital Signs Vital signs: Vital Signs Temp 98.7 F 12/22/16 07:00 Pulse 67 12/22/16 07:00 Resp 16 12/22/16 07:00 BP 139/64 12/22/16 07:00 Pulse Ox 92 L 12/22/16 07:00 Intake & Output 12/21/16 12/22/16 12/22/16 18:59 06:59 18:59 Intake Total 1200 180 Output Total 595 Balance 605 180 Weight 93.44 kg Intake: Intake, IV Titration 480 Amount Lactated Ringers 1,000 ml 480 @ 80 mls/hr IV .[id number] [facility] Rx#:[id number] Oral 720 180 Output: Urine 595 Uretheral (Ibarra) 200 Other: Voiding Method Toilet Toilet # Voids 1 1 - Exam General appearance: cooperative, no acute distress, obese - EENT Eyes: anicteric sclerae, fundus normal, dentition normal, normal appearance ENT: hard of hearing, NA/AT, normal oropharynx - Respiratory Respiratory: bilateral: CTA, negative: diminished, dullness, rales, rhonchi - Cardiovascular Rhythm: regular Heart sounds: normal: S1, S2 - Gastrointestinal General gastrointestinal: decreased bowel sounds, normal bowel sounds - Integumentary Integumentary: normal, normal turgor - Neurologic Neurologic: CNII-XII intact - Musculoskeletal Musculoskeletal: strength equal bilaterally - Psychiatric Psychiatric: A&O x's 3, appropriate affect, intact judgment & insight - Labs CBC & Chem 7: 12/21/16 07:04 12/21/16 07:04 Labs: Microbiology - Last 24 Hours (Table) 12/20/16 22:15 Urine Culture - Preliminary Urine,Catheterized Assessment and Plan Plan: 1. Right total knee arthroplasty on 12/20/2016, patient's doing well, she is receiving analgesic in on-Q bupivacaine pain pump control on the right thigh, incentive spirometry . She will need to be on DVT prophylaxis for at least 4 weeks, I suggest a factor X A inhibitors on discharge secondary high risk profile. currently on lovenox sq 30 q12 therapies is following closely with anticipated discharge to home therapies 2. Asymptomatic pyuria. no need for antibiotics. 3. Hypertension on losartan HCTZ 100 mg to be started on 12/21 4. Hyperlipidemia on statin mevacor 5. prior history of breast cancer bilateral 2005, 2013 Discharge planning anticipate discharge to home therapies DVT prophylaxis he would start the patient on Xarelto 10, once daily upon discharge, continue lovenox till then Impression and plan of care have been directed as dictated by the signing physician. Marilyn Fleming nurse practitioner acting as scribe for signing physician. CC: Dr. Hosea Swann Time with Patient: Greater than 30
== END 2016-12-22 14:17 | disposition home health service (06) | DRG 470 ==
LOC: 2ORMAIN 08:25 → 3SUR 13:55
PROVIDERS: ADMIT Orthopaedic Surgery; ATTEND Orthopaedic Surgery
PROC: 0SRC0J9 Replacement of Right Knee Joint with Synthetic Substitute, Cemented, Open Approach (ICD-10-PCS; principal; 2016-12-20 10:00)
DX: M17.11 Unilateral primary osteoarthritis, right knee (principal); I11.9 Hypertensive heart disease without heart failure; N39.0 Urinary tract infection, site not specified; E78.5 Hyperlipidemia, unspecified; Z80.0 Family history of malignant neoplasm of digestive organs; Z80.6 Family history of leukemia; Z85.3 Personal history of malignant neoplasm of breast; Z96.652 Presence of left artificial knee joint; F41.9 Anxiety disorder, unspecified; Z90.13 Acquired absence of bilateral breasts and nipples; Z79.899 Other long term (current) drug therapy
CPT/HCPCS: 80048; 81001; 85025; 87086; 88300; 88305; 88311

== ENCOUNTER → 2017-05-31 | Outpatient (CLI) | payer MEDICARE ==
--- NOTE | 2017-05-31 09:54 | XR ---
EXAMINATION TYPE: XR chest 2V DATE OF EXAM: 05/31/2017 COMPARISON: 04/09/2016 HISTORY: History of breast cancer TECHNIQUE: Frontal and lateral views of the chest are obtained. FINDINGS: There is no focal air space opacity, pleural effusion, or pneumothorax seen. The cardiac silhouette size is within normal limits. The osseous structures are intact. Bilateral mastectomy is noted. Degenerative changes of the thoracic spine and glenohumeral joints are also seen. IMPRESSION: No acute cardiopulmonary process, unchanged from the prior.
== END | disposition home or self-care (01) ==
LOC: RADXRMAIN 09:33
PROVIDERS: ATTEND Internal Medicine Hematology & Oncology
DX: C50.112 Malignant neoplasm of central portion of left female breast (principal); C50.411 Malignant neoplasm of upper-outer quadrant of right female breast; E78.5 Hyperlipidemia, unspecified; I10 Essential (primary) hypertension
CPT/HCPCS: 71020

== ENCOUNTER → 2017-06-24 | Outpatient (CLI) | payer MEDICARE ==
--- NOTE | 2017-06-24 09:17 | CT ---
EXAMINATION TYPE: CT brain wo con DATE OF EXAM: 06/24/2017 COMPARISON: NONE HISTORY: Vertigo CT DLP: 1108.4 mGycm Automated exposure control for dose reduction was used. FINDINGS: There is a small focus of abnormal signal within the right basal ganglia. Ventricular system is jaden tible with mild generalized atrophy. Slightly greater frontal lobe component. No midline shift or mass effect. No acute hemorrhage. Calvarium intact. Faint areas of abnormal signa l in the white matter bilaterally are nonspecific. May been the basis of remote microvascular ischemi a. IMPRESSION: 1. 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 NONSPECIFIC WHITE MATTER CHANGES NOTED. CORRELATE WITH MRI CLINICALLY WARRANTED.
--- NOTE | 2017-06-24 09:41 | US ---
EXAMINATION TYPE: US carotid duplex BILAT DATE OF EXAM: 06/24/2017 COMPARISON: NONE CLINICAL HISTORY: R42 vertigo. EXAM MEASUREMENTS: RIGHT: Peak Systolic Velocity (PSV) cm/sec ----- Right CCA: 69.0 ----- Right ICA: 72.9 ----- Right ECA: 89.9 ICA/CCA ratio: 1.1 RIGHT: End Diastole cm/sec ----- Right CCA: 14.2 ----- Right ICA: 23.3 ----- Right ECA: 10.3 LEFT: Peak Systolic Velocity (PSV) cm/sec ----- Left CCA: 67.7 ----- Left ICA: 108.1 ----- Left ECA: 87.1 ICA/CCA ratio: 1.6 LEFT: End Diastole cm/sec ----- Left CCA: 12.8 ----- Left ICA: 35.4 ----- Left ECA: 6.3 VERTEBRALS (direction of flow): Right Vertebral: Antegrade Left Vertebral: Antegrade Rhythm: Normal Mild amount of plaque visualized bilaterally, no elevated velocities, no significant stenosis Mild filling of the acoustic window in the right internal carotid arteries present compatible with tu rbulent flow. IMPRESSION: 1. Mild plaquing is present. No significant flow-limiting stenosis. Criteria for Assigning % of Stenosis / Diameter reduction (Estimation based on the indirect measurements of the internal carotid artery velocities (ICA PSV). 1. Normal (no stenosis)=ICA PSV < 125 cm/s: ratio < 2.0: ICA EDV<40 cm/s. 2. Less than 50% stenosis=ICA PSV < 125 cm/s: ratio < 2.0: ICA EDV<40 cm/s. 3. 50 to 69% stenosis=ICA PSV of 125 to 230 cm/s: ration 2.0 ? 4.0: ICA EDV 40-100 cm/s. 4. Greater than 70% stenosis to near occlusion= ICA PSV > 230 cm/s: ratio > 4.0: ICA EDV > 100 cm/s. 5. Near occlusion= ICA PSV velocities may be low or undetectable: variable ratio and ICA EDV. 6. Total occlusion=unable to detect flow.
--- NOTE | 2017-06-24 21:47 | ECHOF ---
Referral Reason:R42 vertigo MEASUREMENTS -------- HEIGHT: 165.1 cm WEIGHT: 95.3 kg BP: IVSd: 0.6 cm (0.6 - 1.1) LVIDd: 4.9 cm (3.9 - 5.3) LVPWd: 0.7 cm (0.6 - 1.1) IVSs: 1.3 cm LVIDs: 2.1 cm LVPWs: 1.2 cm Ao Diam: 3.4 cm (2.0 - 3.7) AV Cusp: 2.2 cm (1.5 - 2.6) LA Diam: 3.2 cm (2.7 - 3.8) MV EXCURSION: 14.967 mm (> 18.000) MV EF SLOPE: 86 mm/s (70 - 150) EPSS: 0.4 cm MV E Mayo: 0.64 m/s MV DecT: 193 ms MV A Mayo: 0.62 m/s MV E/A Ratio: 1.03 RAP: 5.00 mmHg RVSP: 16.50 mmHg FINDINGS -------- Sinus rhythm. This was a technically good study. The left ventricular size is normal. Left ventricular wall thickness is normal. Overall left ventricular systolic function is normal with, an EF between 55 - 60 %. The right ventricle is normal in size and function. The left atrium is normal in size. The right atrium is normal in size. The aortic valve is trileaflet, and appears structurally normal. No aortic stenosis or regurgitation. There is trace mitral regurgitation. Trace tricuspid regurgitation present. The right ventricular systolic pressure, as measured by Doppler, is 16.50mmHg. Pulmonic valve appears structurally normal. The aortic root size is normal. The pericardium is normal. CONCLUSIONS -------- 1. Sinus rhythm. 2. There is trace mitral regurgitation. 3. Trace tricuspid regurgitation present. 4. The right ventricular systolic pressure, as measured by Doppler, is 16.50mmHg. 5. Pulmonic valve appears structurally normal. 6. The aortic root size is normal. 7. The pericardium is normal. 8. This was a technically good study. 9. The left ventricular size is normal. 10. ASYMMETRIC SEPTAL HYPERTROPHY, 11. Overall left ventricular systolic function is normal with, an EF between 55 - 60 %. 12. The right ventricle is normal in size and function. 13. The left atrium is normal in size. 14. The right atrium is normal in size. 15. The aortic valve is trileaflet, and appears structurally normal. No aortic stenosis or regurgitation. MERCHANDISE MARKER: Carolyn Laws RDCS
== END | disposition home or self-care (01) ==
LOC: RADCTMAIN 08:41
PROVIDERS: ATTEND Family Medicine
DX: I65.23 Occlusion and stenosis of bilateral carotid arteries (principal); R90.82 White matter disease, unspecified; I08.1 Rheumatic disorders of both mitral and tricuspid valves; I10 Essential (primary) hypertension
CPT/HCPCS: 70450; 93306; 93880

== ENCOUNTER → 2017-11-22 | Outpatient (CLI) | payer MEDICARE ==
[2017-11-22 11:14] LABS: Blood Urea Nitrogen 25 mg/dL (7-17)
--- NOTE | 2017-11-22 13:02 | MR ---
EXAMINATION TYPE: MR neck wo/w con DATE OF EXAM: 11/22/2017 COMPARISON: Correlation carotid ultrasound 06/24/2017 HISTORY: 72-year-old female Occlusion and stenosis of bilateral carotid Technique: Multiplanar, multisequence images of the soft tissues of the neck were obtained before and after administration of 10 mL intravenous Gadavist gadolinium contrast. FINDINGS: There is some redundancy of the left lateral soft tissues at the posterior junction of the oral and n asopharynx. Postcontrast axial and coronal sequences show no abnormal enhancing mass here. Nasopharynx otherwise clear. Oropharynx shows asymmetric effacement of the left vallecula space. No definite suspicious enhancing mass. Prevertebral soft tissues are within normal limits. Epiglottis is normal. There is conventional arch vessel branching anatomy. The brachiocephalic artery is tortuous as is the right subclavian vein. Attention is directed to the internal jugular veins. No discrete abnormality is seen. No cervical lymphadenopathy or suspicious neck mass is identified. The parotid and submandibular glands as well as the thyroid gland appears satisfactory. Trace mucosal thickening floor of the left maxillary sinus. Degenerative changes throughout the cervical spine. There is ligamentum flavum thickening and disc os teophyte complexes which cause variable moderate spinal canal stenoses. Narrowing is moderate to royal re at C4-C5 where there is a prominent abutment and flattening of both the dorsal and ventral cord. N o myelopathic cord signal abnormality clearly appreciated in the cervical spine. Assessment of cord s ignal in the upper thoracic spine is limited. IMPRESSION: 1. Asymmetric effacement of the left vallecular space likely relates to some lingual tonsillar hypert rophy. This can be correlated with direct visualization. 2. Asymmetric fullness left laterally at the junction of the posterior nasopharynx and oropharynx lik ariel mucosal redundancy as no suspicious enhancing mass is seen here on postcontrast sequences. Again, direct visualization as clinically indicated. 3. No cervical lymphadenopathy or otherwise any suspicious mass is seen. If persistent concern, the e xam can be reviewed with particular attention to the clinical area of interest. 4. Disc osteophyte complexes and ligamentum flavum thickening in the cervical spine causing variable moderate spinal canal stenoses, moderate to severe at C4-C5 where there is mild impingement of the co rd. No myelopathic cord signal change seen in the cervical spine.
== END | disposition home or self-care (01) ==
LOC: RADMRIMAIN 10:35
PROVIDERS: ATTEND Surgery Vascular Surgery
DX: J39.2 Other diseases of pharynx (principal); M48.02 Spinal stenosis, cervical region; M25.78 Osteophyte, vertebrae; I65.23 Occlusion and stenosis of bilateral carotid arteries
CPT/HCPCS: 82565; 84520; 70543; A9581

== ENCOUNTER → 2018-06-21 | Outpatient (CLI) | payer MEDICARE ==
--- NOTE | 2018-06-21 14:09 | BD ---
EXAMINATION TYPE: Axial Bone Density DATE OF EXAM: 06/21/2018 COMPARISON: NONE CLINICAL HISTORY: Height: 5 FT 4 1/2 IN Weight: 236 FRAX RISK QUESTIONS: History of Fracture in Adulthood: YES Secondary Osteoporosis: RISK FACTORS HISTORY OF: Active: YES Postmenopausal woman: AGE 53 MEDICATIONS: Additional Medications: ATTENOLOL, LOVASTATIN,HYZAAR, ESTROGEN MICKIE Additional History: BREAST CANCER CHEMO AND RADIATION EXAM MEASUREMENTS: Bone mineral densitometry was performed using the [employer]. Bone mineral density as measured about the Lumbar spine is: ----- L1-L4(G/cm2): 1.383 T Score Values are as follows: ----- L2: 2.0 ----- L3: 2.9 ----- L4: 0.5 ----- L1-L4: 1.7 Bone mineral density has: DECREASED -7.7 % since study of: 2015 Bone mineral density about the R hip (g/cm2): 1.080 Bone mineral density about the L hip (g/cm2): 1.122 T Score values are as follows: -----R Neck: 0.3 -----L Neck: 0.6 -----R Total: 0.8 -----L Total: 1.5 Bone mineral density has: INCREASED 1.1 % since study of: 2015 IMPRESSION: Normal (Values between +1 and -1 indicate normal bone mass). Consider repeating this study in 5 year s or sooner if there is some new clinical indication. NOTE: T-SCORE=SD OF THE YOUNG ADULT MEAN.
== END | disposition home or self-care (01) ==
LOC: RADBDWWP 13:09
PROVIDERS: ATTEND Internal Medicine Hematology & Oncology
DX: Z13.820 Encounter for screening for osteoporosis (principal); C50.112 Malignant neoplasm of central portion of left female breast; Z79.811 Long term (current) use of aromatase inhibitors
CPT/HCPCS: 77080

== ENCOUNTER → 2018-08-08 | Outpatient (CLI) | payer MEDICARE ==
--- NOTE | 2018-08-08 12:34 | XR ---
EXAMINATION TYPE: XR lumbosacral spine min 4V DATE OF EXAM: 08/08/2018 CLINICAL HISTORY: Low back pain. TECHNIQUE: Frontal, lateral, and oblique images of the lumbar spine are obtained. COMPARISON: None FINDINGS: There are 5 lumbar type vertebral bodies identified. The lumbar spine shows straightened alignment without evidence of acute fracture or dislocation. Vertebral body heights are within normal limits. Moderate disc space narrowing L2-L3 level with mild to moderate anterior spurring is presen t. Mild to moderate disc space narrowing L5-S1 level is seen. There is facet arthropathy in the lower lumbar spine. The oblique images appear within normal limits. Vascular calcification of overlying ab dominal aorta is noted. IMPRESSION: As above
--- NOTE | 2018-08-08 12:35 | XR ---
EXAMINATION TYPE: XR Hip Bilateral Complete DATE OF EXAM: 08/08/2018 CLINICAL HISTORY: Bilateral hip pain TECHNIQUE: AP and frogleg views of the bilateral hips are obtained. COMPARISON: None. FINDINGS: There is no acute fracture or dislocation in either hip. There is mild axial joint space lo ss and acetabular spurring seen bilaterally fairly symmetric in appearance. The overlying soft tissu e appears unremarkable bilaterally. IMPRESSION: As above.
== END | disposition home or self-care (01) ==
LOC: RADXRMAIN 11:58
PROVIDERS: ATTEND Family Medicine
DX: M48.07 Spinal stenosis, lumbosacral region (principal); M46.96 Unspecified inflammatory spondylopathy, lumbar region; M76.892 Other specified enthesopathies of left lower limb, excluding foot; M76.891 Other specified enthesopathies of right lower limb, excluding foot
CPT/HCPCS: 72110; 73521

== ENCOUNTER → 2019-08-08 | Outpatient (CLI) | payer MEDICARE ==
--- NOTE | 2019-08-08 09:40 | US ---
EXAMINATION TYPE: US pelvic complete DATE OF EXAM: 08/08/2019 COMPARISON: US 2011 CLINICAL HISTORY: R10.2 Pelvic and perineal pain, C50.919. History of breast CA, patient states no pe lvic pain or bleeding, 3, para 2, miscarriage TECHNIQUE: . Transabdominal sonographic images of the pelvis were acquired. Transvaginal sonographi c images were medically necessary to better assess the following anatomy: endometrium and ovaries Date of LMP: 1997 EXAM MEASUREMENTS: Uterus: 6.1 x 3.4 x 4.4 cm Endometrial Stripe: 1.0 cm Right Ovary: 1.7 x 1.3 x 0.9 cm Left Ovary: not seen 1. Uterus: retroverted, heterogeneous 2. Endometrium: thickened, small amount of fluid, possible 1.1 x 0.7 x 1.3cm heterogeneous hyperecho ic area without any vascularity 3. Right Ovary: wnl 4. Left Ovary: not seen due to overlying bowel gas 5. Bilateral Adnexa: wnl 6. Posterior cul-de-sac: wnl IMPRESSION: 1. Abnormally thickened and heterogenous endometrium measuring up to 1.3 cm. Fluid is seen internally , abnormal for the patient's age. Direct visualization and percutaneous sampling is recommended. 2. Nonvisualization of the left ovary.
== END | disposition home or self-care (01) ==
LOC: RADUSWWP 08:59
PROVIDERS: ATTEND Obstetrics & Gynecology
DX: R93.89 Abnormal findings on diagnostic imaging of other specified body structures (principal); C50.919 Malignant neoplasm of unspecified site of unspecified female breast
CPT/HCPCS: 76830; 76856

== ENCOUNTER → 2019-09-06 | Outpatient (CLI) | payer MEDICARE ==
[2019-09-06 12:43] LABS: Basophils # (A) 0.1 k/uL (0-0.2); Basophils % (A) 1 %; Eosinophils # (A) 0.3 k/uL (0-0.7); Eosinophils % (A) 4 %; HCT 44.1 % (34.0-46.0); HGB 14.5 gm/dL (11.4-16.0); Lymphocytes # (A) 2.3 k/uL (1.0-4.8); Lymphocytes % (A) 28 %; MCH 29.1 pg (25.0-35.0); MCV 88.2 fL (80.0-100.0); Mean Platelet Volume 6.6; Monocytes # (A) 0.4 k/uL (0-1.0); Monocytes % (A) 5 %; Neutrophils % (A) 61 %; Platelet Count 262 k/uL (150-450); WBC 8.2 k/uL (3.8-10.6)
== END | disposition home or self-care (01) ==
LOC: LABPAT 12:18
PROVIDERS: ATTEND Obstetrics & Gynecology
DX: Z01.818 Encounter for other preprocedural examination (principal)
CPT/HCPCS: 85025; 93005

== ENCOUNTER 2019-09-11 09:05 | Day surgery (SDC) | payer MEDICARE ==
[2019-09-06 16:06] VITALS: BMI 35.7
--- NOTE | 2019-09-10 19:05 | P.HPOB ---
History of Present Illness H&P Date: 09/10/19 Chief Complaint: Endometrial thickening This is a 74-year-old female 3 para 2 who presents for dilation and curettage with hysteroscopy secondary to endometrial thickening noted on pelvic ultrasound. Uterus measured 6.1 x 3.4 x 4.4 cm with an endometrial thickness of 1 cm. There was also a possible endometrial polyp measuring 1.1 cm. Right ovary appeared normal and left ovary was not visualized. She denies any vaginal bleeding. Her pelvic ultrasound was performed as surveillance due to her history of breast cancer. Obstetrical history: . History of 2 vaginal deliveries and 1 miscarriage. Gynecologic history: No history of sexually transmitted diseases. She did have 1 abnormal Pap smear several years ago for which she had a colposcopy and cryocautery. Her last Pap smear was within normal limits in July 2019. Social history: She is retired. She is . She has no current partner. Review of Systems Constitutional: Reports weight loss, Denies chills, Denies fever Eyes: denies blurred vision, denies pain Ears, nose, mouth and throat: Denies headache, Denies sore throat Cardiovascular: Denies chest pain, Denies shortness of breath Respiratory: Denies cough Gastrointestinal: Denies abdominal pain, Denies diarrhea, Denies nausea, Denies vomiting Genitourinary: Denies abnormal vaginal bleeding, Denies dysuria, Denies hematuria, Denies pelvic pain Menstruation: Reports postmenopausal Musculoskeletal: Reports myalgias Integumentary: Denies pruritus, Denies rash Neurological: Denies numbness, Denies weakness Psychiatric: Reports insomnia, Denies anxiety, Denies depression Past Medical History Past Medical History: Cancer, Diabetes Mellitus, Hyperlipidemia, Hypertension, Osteoarthritis (OA) Additional Past Medical History / Comment(s): hx migraines, breast cancer- had chemo and radiation 2012, arthritis, anemia, 'diet control diabetic", having v aginal burning-saw Dr Fierro History of Any Multi-Drug Resistant Organisms: None Reported Past Surgical History: Adenoidectomy, Breast Surgery, Cholecystectomy, Joint Replacement, Orthopedic Surgery, Tonsillectomy Additional Past Surgical History / Comment(s): johnson knee replacement, RIGHT breast LUMPECTOMY WITH RADIATION - THEN johnson mastectomy d&c,rectal sphincter muscle surgery, johnson knee arthroscopic, left shoulder rotator cuff tear repair, Past Anesthesia/Blood Transfusion Reactions: Postoperative Nausea & Vomiting (PONV) Past Psychological History: No Psychological Hx Reported Smoking Status: Never smoker Past Alcohol Use History: None Reported Past Drug Use History: None Reported - Past Family History Father Family Medical History: Cancer Additional Family Medical History / Comment(s): COLON CANCER Mother Family Medical History: Cancer Additional Family Medical History / Comment(s): LEUKEMIA Brother(s) Family Medical History: Cancer Sister(s) Family Medical History: Cancer Daughter(s) Family Medical History: No Reported History Son(s) Family Medical History: No Reported History Medications and Allergies Home Medications Medication Instructions Recorded Confirmed Type Atenolol [Tenormin] 25 mg PO HS 05/01/14 09/06/19 History LORazepam [Ativan] 1 mg PO TID PRN 05/01/14 09/06/19 History Losartan/Hydrochlorothiazide 1 tab PO QAM 05/01/14 09/06/19 History [Losartan-Hctz 100-25 mg Tab] Lovastatin [Mevacor] 40 mg PO HS 05/01/14 09/06/19 History Exemestane 25 mg PO QAM 02/19/15 09/06/19 History Multivitamins, Thera [Multivitamin 1 tab PO DAILY 02/19/15 09/06/19 History (formulary)] Allergies Allergy/AdvReac Type Severity Reaction Status Date / Time adhesive tape AdvReac Mild Rash/Hives Uncoded 09/06/19 15:55 Exam Osteopathic Statement: *. No significant issues noted on an osteopathic structural exam other than those noted in the History and Physical/Consult. HEENT: Within normal limits Heart: Regular rate and rhythm Lungs: Clear to auscultation bilaterally Abdomen: Soft, nontender Pelvic exam: Uterus is mid position, nontender, with first-degree uterine prolapse. No adnexal masses or tenderness are noted. First-degree cystocele and third-degree rectocele are also noted. Extremities: Negative Homans Assessment and Plan (1) Endometrial thickening on ultrasound Status: Acute Code(s): R93.89 - ABNORMAL FINDINGS ON DX IMAGING OF OTH BODY STRUCTURES SNOMED Code(s): 491620267 Plan: Proceed with dilation and curettage with hysteroscopy. I have discussed the risks, benefits, and alternative therapies for the above- mentioned procedure and for both sedation/anesthesia as well as necessary blood products administration, if indicated, as they pertain to this patient. The patient has indicated her understanding and acceptance of the risks and procedures discussed.
[~2019-09-11 09:05] MED LIST changes: -ACETAMINOPHEN TAB 500 MG TAB PO ONE; +DEXAMETHASONE SOD PHOSPHATE 10 MG/ML 1 ML VIAL IV ONE; +HYDROmorphone 0.5 MG/0.5 ML SYRINGE IVP PRN; -HYDROmorphone 1 MG/ML 1 ML SYRINGE IVP PRN; +LACTATED RINGERS 1,000 ML IV SCH; -MELOXICAM 7.5 MG TAB PO ONE; -MIDAZOLAM 2 MG/2 ML VIAL IV PRN; +Pre Op ABX Message 1 EACH MISC MISCELLANE ONE; -TRANEXAMIC ACID 1,000 MG in SODIUM CHLORIDE 0.9% 100 ML IVPB ONE; -ceFAZolin 2 GM in SODIUM CHLORIDE 0.9% 100 ML IVPB ONE; -fentaNYL (PF) 50 MCG/ML 20 ML VIAL IVP PRN
[2019-09-11 09:51] LABS: Glucose,Whole Blood 114 mg/dL (75-99)
[2019-09-11] MEDS ORDERED: KETOROLAC 30 MG/ML 1 ML VIAL ONE (10:18)
[2019-09-11] MEDS ORDERED: fentaNYL (PF) 50 MCG/ML 2 ML AMP ONE (10:18)
[2019-09-11] MEDS ORDERED: LIDOCAINE 1% INJ 10MG/ML (20 ML MDV) ONE (10:18)
[2019-09-11] MEDS ORDERED: PROPOFOL 10 MG/ML 20 ML VIAL IV ONE (10:18)
--- NOTE | 2019-09-11 10:57 | P.OP ---
Date of Procedure: 09/11/19 Preoperative Diagnosis: Endometrial thickening Postoperative Diagnosis: Same Procedure(s) Performed: Dilation and curettage with hysteroscopy Anesthesia: other (Mask general) Surgeon: Melissa Fierro Estimated Blood Loss (ml): 5 Pathology: other (Endometrial curettings) Condition: stable Disposition: same day Indications for Procedure: This is a 74-year-old female 3 para 2 who presents for dilation and curettage with hysteroscopy secondary to endometrial thickening noted on pelvic ultrasound. Uterus measured 6.1 x 3.4 x 4.4 cm with an endometrial thickness of 1 cm. There was also a possible endometrial polyp measuring 1.1 cm. Right ovary appeared normal and left ovary was not visualized. She denies any vaginal bleeding. Her pelvic ultrasound was performed as surveillance due to her history of breast cancer. Operative Findings: Uterus is sounded to 7 cm. Cervical os is slightly stenotic. Upon hysteroscopy, background endometrium appears atrophic however there is a fairly large polyp noted but does appear slightly atypical with some fluid within it. Some polypoid tissue is obtained. Minimal further tissue is noted. Description of Procedure: The patient is taken to the operating room where she is placed in the dorsal lithotomy position. She is prepped and draped in the normal sterile fashion. Her bladder is drained with a catheter. Grade 3 rectocele is noted. Approximate grade 1-2 uterine prolapse is noted. A weighted speculum was placed in the patient's vagina. A single-tooth tenaculum is used to grasp the anterior lip of the cervix. The cervix is gently dilated with a Garber dilator and then the uterus is sounded to 7 cm. The cervix is gently dilated further to a hysteroscope could be passed. Hysteroscopy is performed using normal saline. The above noted findings are made and pictures are taken. Hysteroscope was withdrawn. Next a polyp forceps was introduced and a polyp approximately 2-1/2 cm long was removed. Next a medium-size sharp curet was introduced and sharp cu rettage was performed until a gritty texture was noted. Minimal further tissue was obtained. The specimen is removed from the field and labeled endometrial curettings. The single-tooth tenaculum was removed. No active bleeding is noted. All other and Ha removed from the vagina. All sponge counts are correct. The patient is then taken to recovery room in stable condition.
[2019-09-11] MEDS ORDERED: ATROPINE SULFATE 0.1 MG/ML 10ML SYRINGE IVP ONE (11:15)
[2019-09-11 11:25] VITALS: TEMP 96.8
[2019-09-11 11:31] LABS: Glucose,Whole Blood 114 mg/dL (75-99)
[2019-09-11 12:54] VITALS: BP 147/80; PULSE 62; RESP 18
== END 2019-09-11 13:26 | disposition home or self-care (01) ==
LOC: OR 09:05
PROVIDERS: ATTEND Obstetrics & Gynecology
DX: N84.0 Polyp of corpus uteri (principal); I10 Essential (primary) hypertension; E11.9 Type 2 diabetes mellitus without complications; E78.5 Hyperlipidemia, unspecified; M19.90 Unspecified osteoarthritis, unspecified site; E66.9 Obesity, unspecified; G47.00 Insomnia, unspecified; G43.909 Migraine, unspecified, not intractable, without status migrainosus; D64.9 Anemia, unspecified; Z85.3 Personal history of malignant neoplasm of breast; Z91.048 Other nonmedicinal substance allergy status; Z92.21 Personal history of antineoplastic chemotherapy; Z92.3 Personal history of irradiation; Z90.89 Acquired absence of other organs; Z79.899 Other long term (current) drug therapy; Z78.0 Asymptomatic menopausal state; Z68.35 Body mass index [BMI] 35.0-35.9, adult; Z90.49 Acquired absence of other specified parts of digestive tract; Z96.653 Presence of artificial knee joint, bilateral; Z90.13 Acquired absence of bilateral breasts and nipples; Z80.0 Family history of malignant neoplasm of digestive organs; Z80.6 Family history of leukemia
CPT/HCPCS: 88305; 58558; J1100; J2405; J2001; J0461; J3010; J1885; J2704

== ENCOUNTER 2020-01-04 09:59 | Emergency (ER) | payer MEDICARE ==
[2020-01-04 10:06] VITALS: TEMP 99.3
[2020-01-04 10:48] VITALS: PULSE 72; RESP 18
--- NOTE | 2020-01-04 10:51 | XR ---
EXAMINATION TYPE: XR chest 1V DATE OF EXAM: 01/04/2020 COMPARISON: 05/31/2017 HISTORY: Cough and fever TECHNIQUE: Single frontal view of the chest is obtained. FINDINGS: There is no focal air space opacity, pleural effusion, or pneumothorax seen. The cardiac silhouette size is within normal limits. The osseous structures are intact. IMPRESSION: No acute process.
[2020-01-04] MEDS ORDERED: cefTRIAXone 1,000 MG VIAL (IM USE) IM STA (10:55)
--- NOTE | 2020-01-04 10:56 | ED ---
General Adult HPI - General Chief complaint: Fever Stated complaint: Fever Time Seen by Provider: 01/04/20 10:07 Source: patient, RN notes reviewed Mode of arrival: ambulatory Limitations: no limitations - History of Present Illness Initial comments: 74-year-old female with a past medical history of diet controlled diabetes mellitus, hypertension, hyperlipidemia, history of breast cancer with bilateral mastectomy 6 years ago not currently taking any immunosuppressants presents to the emergency department for a chief complaint of cough. Patient states she has had a cough for 5 days associated with a fever. She is at the fever seemed to go away for a day or 2 but then she noticed it came back today. She called her doctor and her doctor recommended she come to the emergency department. Patient has not had any associated chest pain or shortness of breath whatsoever. Patient did take Tylenol as morning. Denies weakness. States she has been drinking plenty of fluids.Patient has no other complaints at this time including shortness of breath, chest pain, abdominal pain, nausea or vomiting, headache, or visual changes. - Related Data Home Medications Medication Instructions Recorded Confirmed Atenolol [Tenormin] 25 mg PO HS 05/01/14 09/11/19 LORazepam [Ativan] 1 mg PO TID PRN 05/01/14 09/11/19 Losartan/Hydrochlorothiazide 1 tab PO QAM 05/01/14 09/11/19 [Losartan-Hctz 100-25 mg Tab] Lovastatin [Mevacor] 40 mg PO HS 05/01/14 09/11/19 Exemestane 25 mg PO QAM 02/19/15 09/11/19 Multivitamins, Thera [Multivitamin 1 tab PO DAILY 02/19/15 09/11/19 (formulary)] Previous Rx's Medication Instructions Recorded Azithromycin [Zithromax Z-pack] 250 mg PO DIRECTED #6 tab 01/04/20 Allergies Allergy/AdvReac Type Severity Reaction Status Date / Time adhesive tape AdvReac Mild Rash/Hives Uncoded 01/04/20 10:06 Review of Systems ROS Statement: Those systems with pertinent positive or pertinent negative responses have been documented in the HPI. ROS Other: All systems not noted in ROS Statement are negative. Past Medical History Past Medical History: Cancer, Diabetes Mellitus, Hyperlipidemia, Hypertension, Osteoarthritis (OA) Additional Past Medical History / Comment(s): hx migraines, breast cancer- had chemo and radiation 2012, arthritis, anemia, 'diet control diabetic", having vaginal burning-saw Dr Fierro History of Any Multi-Drug Resistant Organisms: None Reported Past Surgical History: Adenoidectomy, Breast Surgery, Cholecystectomy, Joint Replacement, Orthopedic Surgery, Tonsillectomy Additional Past Surgical History / Comment(s): johnson knee replacement, RIGHT breast LUMPECTOMY WITH RADIATION - THEN johnson mastectomy d&c,rectal sphincter muscle surgery, johnson knee arthroscopic, left shoulder rotator cuff tear repair, Past Anesthesia/Blood Transfusion Reactions: Postoperative Nausea & Vomiting (PONV) Past Psychological History: No Psychological Hx Reported Smoking Status: Never smoker Past Alcohol Use History: None Reported Past Drug Use History: None Reported - Past Family History Father Family Medical History: Cancer Additional Family Medical History / Comment(s): COLON CANCER Mother Family Medical History: Cancer Additional Family Medical History / Comment(s): LEUKEMIA Brother(s) Family Medical History: Cancer Sister(s) Family Medical History: Cancer Daughter(s) Family Medical History: No Reported History Son(s) Family Medical History: No Reported History General Exam Limitations: no limitations General appearance: alert, in no apparent distress Head exam: Present: atraumatic, normocephalic, normal inspection Eye exam: Present: normal appearance, PERRL, EOMI. Absent: scleral icterus, conjunctival injection, periorbital swelling ENT exam: Present: normal exam, normal oropharynx, mucous membranes moist, TM's normal bilaterally, normal external ear exam Neck exam: Present: normal inspection, full ROM. Absent: tenderness, meningismus, lymphadenopathy Respiratory exam: Present: normal lung sounds bilaterally. Absent: respiratory distress, wheezes, rales, rhonchi, stridor Cardiovascular Exam: Present: regular rate, normal rhythm, normal heart sounds. Absent: systolic murmur, diastolic murmur, rubs, gallop, clicks GI/Abdominal exam: Present: soft, normal bowel sounds. Absent: distended, tenderness, guarding, rebound, rigid Course Vital Signs 01/04/20 01/04/20 01/04/20 10:03 10:30 10:48 Temperature 99.3 F Pulse Rate 80 72 Respiratory 18 16 18 Rate Blood Pressure 151/76 O2 Sat by Pulse 96 95 Oximetry Medical Decision Making - Medical Decision Making Patient is well-appearing. She is sitting up in the exam her home in a chair. She is not in any respiratory distress. Lung sounds are clear. Vitals are stable. Patient is 96% on room air. Chest x-ray shows no acute process. At this time patient was reevaluated and continues to be well-appearing. Continuing to deny shortness of breath. Patient is stable for discharge home. We did start patient on azithromycin given his duration of cough and fever. I also discussed possibility of Covid 19 and the importance of self-isolation. Also discussed strict return parameters including for shortness of breath and she is agreeable to this. Disposition Clinical Impression: Cough Disposition: HOME SELF-CARE Condition: Good Instructions (If sedation given, give patient instructions): Fever in Adults (ED) Additional Instructions: Please self isolate for 14 days. Please take antibiotic as directed. This was prescribed to [facility] pharmacy. Please monitor for worsening symptoms such as shortness of breath or chest pain and if these occur return to the emergency department. Otherwise contact your doctor about appropriate follow-up. Prescriptions: Azithromycin [Zithromax Z-pack] 250 mg PO DIRECTED #6 tab Is patient prescribed a controlled substance at d/c from ED?: No Referrals: Hosea Swann DO [Primary Care Provider] - 1-2 days Time of Disposition: 10:55
[2020-01-04 11:13] VITALS: BP 148/80
== END 2020-01-04 11:11 | disposition home or self-care (01) ==
LOC: EC 09:59
DX: R05 Cough (principal); R50.9 Fever, unspecified; E78.5 Hyperlipidemia, unspecified; I10 Essential (primary) hypertension; M19.90 Unspecified osteoarthritis, unspecified site; Z96.653 Presence of artificial knee joint, bilateral; Z85.3 Personal history of malignant neoplasm of breast; Z92.21 Personal history of antineoplastic chemotherapy; Z79.899 Other long term (current) drug therapy; Z91.048 Other nonmedicinal substance allergy status
CPT/HCPCS: 71045; 99284; 96372; J0696

== ENCOUNTER 2020-01-10 10:58 | Inpatient (IN) | payer MEDICARE ==
[2020-01-10] MEDS ORDERED: ACETAMINOPHEN TAB 500 MG TAB PO STA (11:37)
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
--- NOTE | 2020-01-10 12:19 | XR ---
EXAMINATION TYPE: XR chest 1V portable DATE OF EXAM: 01/10/2020 COMPARISON: Chest x-ray 6 days ago HISTORY: Pneumonia progress study. TECHNIQUE: Single AP portable frontal upright view of the chest is obtained. FINDINGS: The osseous structures remain demineralized. Cardiac silhouette size remains stable and mi ldly enlarged. Chronic parenchymal changes with increased faint opacities particularly periphery of t he mid lungs. Increased interstitial prominence. Overlying EKG leads now present. No pleural effusion or pneumothorax noted bilaterally. IMPRESSION: Correlate for fluid overload state or CHF exacerbation as there is mild cardiomegaly wit h new mild interstitial edema. Cannot exclude developing multifocal midlung infiltrates. Correlate cl inically.
[2020-01-10 12:34] LABS: Basophils % (A) 0 %; Eosinophils % (A) 0 %; HGB 12.8 gm/dL (11.4-16.0); Lymphocytes # (A) 0.7 k/uL (1.0-4.8); Lymphocytes % (A) 13 %; MCH 29.3 pg (25.0-35.0); MCHC 33.7 g/dL (31.0-37.0); MCV 86.8 fL (80.0-100.0); Mean Platelet Volume 7.4; Monocytes # (A) 0.2 k/uL (0-1.0); Monocytes % (A) 4 %; Neutrophils # (A) 4.1 k/uL (1.3-7.7); Neutrophils % (A) 80 %; Platelet Count 265 k/uL (150-450); RBC 4.37 m/uL (3.80-5.40); RDW 12.7 % (11.5-15.5); WBC 5.1 k/uL (3.8-10.6)
[2020-01-10 12:50] LABS: Albumin 3.9 g/dL (3.5-5.0); Calcium 9.1 mg/dL (8.4-10.2); Magnesium 1.7 mg/dL (1.6-2.3); Potassium 3.9 mmol/L (3.5-5.1); Total Bilirubin 1.3 mg/dL (0.2-1.3); Total Protein 6.8 g/dL (6.3-8.2)
[2020-01-10 12:55] LABS: Partial Thromboplastin Time 28.4 sec (22.0-30.0); Prothrombin Time 10.2 sec (9.0-12.0)
[2020-01-10 13:13] LABS: D-Dimer 0.87 mg/L FEU (<0.60)
[2020-01-10 13:14] LABS: C Reactive Protein 145.9 mg/L (<10.0)
[2020-01-10] MEDS ORDERED: SODIUM CHLORIDE 0.9% 1,000 ML IV ONE (13:42)
[2020-01-10] MEDS ORDERED: ALBUTEROL HFA INHALER INHALATION STA (13:52)
[2020-01-10] MEDS: ATORVASTATIN 10 MG TAB PO SCH (20:58)
[2020-01-10] MEDS: ATENOLOL 25 MG TAB PO SCH (20:58)
[2020-01-10] MEDS: ALBUTEROL HFA INHALER INHALATION PRN (21:16)
[2020-01-11] MEDS: ACETAMINOPHEN TAB 325 MG TAB PO PRN (01:04)
[2020-01-11 02:57] LABS: Ferritin 1382.3 ng/mL (10.0-291.0)
[2020-01-11] MEDS: MULTIVITAMINS, THERA 1 EACH TAB PO SCH (07:09)
[2020-01-11] MEDS: ALBUTEROL HFA INHALER INHALATION PRN ×2 (07:32→11:35)
[2020-01-11] MEDS ORDERED: EXEMESTANE PO SCH (09:00)
[2020-01-11] MEDS ORDERED: guaiFENesin-Coden 100-10MG/5ML 10 ML CUP PO PRN (09:24)
[2020-01-11] MEDS: ZINC SULFATE 220 MG CAP PO SCH (10:28)
[2020-01-11] MEDS: HYDROXYCHLOROQUINE SULFATE 200 MG TAB PO SCH ×2 (10:29→20:23)
--- NOTE | 2020-01-11 11:47 | P.CNPUL ---
History of Present Illness Consult date: 01/11/20 Requesting physician: Jone Lewis Reason for consult: dyspnea, cough Chief complaint: Dyspnea, cough History of present illness: 74-year-old white female patient with past medical history of hypertension, hyperlipidemia, diabetes mellitus type 2, osteoarthritis, lifetime nonsmoker, bilateral breast cancer status post bilateral mastectomy and chemoradiation therapy in 2012, who was in the emergency department on 01/04/2020 with complaints of cough and fever of 5 day duration. Her vitals were stable then, she was on room air, chest x-ray showed no acute process, and patient was discharged home on azithromycin. Patient was not tested for COVID 19. Patient does admit to being exposed to coronavirus, her neighbor was hospitalized for 5 days with Covid 19 infection, and apparently she did come over to visit. On 01/10/2020 patient came in with shortness of breath, persistent fevers, dry cough, not feeling well. No nausea vomiting or diarrhea no conjunctival symptoms. Her chest x-ray showed increased interstitial prominence, no pleural effusions, cannot exclude developing multifocal mid lung infiltrates. Blood work showed normal white count of 5.1, lymphopenia at 0.7, d-dimer was 0.87, sodium was 1:30, potassium 3.9, CO2 was 19, B1 is 22, creatinine is 1.08, ferritin was elevated 1382, plasma lactic acid was 0.9, AST was 70, ALT was 33, alkaline phosphatase 75, LDH was 1207, C-reactive protein was 145, protein acetone was also elevated to 0.70, influenza screen was negative, coronavirus was detected on the PCR test. T-max in the last 24 hours was 10 3F, patient is currently on 2 L of oxygen the pulse ox of 95%, hemodynamically stable, she has a persistent dry cough, and shortness of breath with exertion. Lung sounds reveal coarse crackles in bilateral bases, patient has been started on a combination of antibiotics, including ceftriaxone and doxycycline, and Plaquenil. Review of Systems All systems: negative Constitutional: Denies chills, Denies fever Eyes: denies blurred vision, denies pain Ears, nose, mouth and throat: Denies headache, Denies sore throat Cardiovascular: Denies chest pain, Denies shortness of breath Respiratory: Reports cough, Reports dyspnea Gastrointestinal: Denies abdominal pain, Denies diarrhea, Denies nausea, Denies vomiting Genitourinary: Denies dysuria, Denies hematuria Musculoskeletal: Denies myalgias Integumentary: Denies pruritus, Denies rash Neurological: Denies numbness, Denies weakness Psychiatric: Denies anxiety, Denies depression Endocrine: Denies fatigue, Denies weight change Past Medical History Past Medical History: Cancer, Diabetes Mellitus, GERD/Reflux, Hyperlipidemia, Hypertension, Osteoarthritis (OA), Pneumonia Additional Past Medical History / Comment(s): 2005 R breast cancer with lumpectomy/radiation/mastectomy, 2012 L breast cancer with mastectomy, NIDDM type II-diet controlled, arthritis in back, occasional back pain, migraines, anemia, UTI. History of Any Multi-Drug Resistant Organisms: None Reported Past Surgical History: Adenoidectomy, Breast Surgery, Cholecystectomy, Joint Replacement, Orthopedic Surgery, Tonsillectomy Additional Past Surgical History / Comment(s): Bilateral breast biopsies, R breast lumpectomy/mastectomy, L breast mastectomy, port since removed, bilateral knee arthroscopies, bilateral total knee replacements, L rotator cuff repair, hysteroscopy/D&Cs, colposcopy/cyro for abnormal pap smear, rectal sphincter muscle surgery, hemorrhoidectomy, colonoscopies. Past Anesthesia/Blood Transfusion Reactions: Postoperative Nausea & Vomiting (PONV) Additional Past Anesthesia/Blood Transfusion Reaction / Comment(s): Pt states they have had a hard time with her blood pressure dropping. Smoking Status: Never smoker - Past Family History Father Family Medical History: Cancer Additional Family Medical History / Comment(s): COLON CANCER Mother Family Medical History: Cancer Additional Family Medical History / Comment(s): LEUKEMIA Brother(s) Family Medical History: Cancer Sister(s) Family Medical History: Cancer Daughter(s) Family Medical History: No Reported History Son(s) Family Medical History: No Reported History Medications and Allergies Home Medications Medication Instructions Recorded Confirmed Type Atenolol [Tenormin] 25 mg PO HS 05/01/14 01/10/20 History Losartan/Hydrochlorothiazide 1 tab PO QAM 05/01/14 01/10/20 History [Losartan-Hctz 100-25 mg Tab] Lovastatin [Mevacor] 40 mg PO HS 05/01/14 01/10/20 History Exemestane 25 mg PO QAM 02/19/15 01/10/20 History Multivit-Min/Iron/Folic/Lutein 1 tab PO DAILY 01/10/20 01/10/20 History [Centrum Silver Women Tablet] Allergies Allergy/AdvReac Type Severity Reaction Status Date / Time adhesive tape Allergy Rash/Hives Verified 01/10/20 13:53 Physical Exam Vitals: Vital Signs Temp Pulse Pulse Resp BP BP Pulse Ox 01/11/20 10:52 99.7 F H 83 18 139/64 95 01/11/20 07:00 99 F 82 18 137/72 96 01/11/20 05:24 98.6 F 85 97 01/11/20 02:34 100.4 F H 91 16 102/64 94 L 01/11/20 01:00 103 F H 101 H 22 90 L 01/10/20 22:51 103.0 F H 90 15 153/71 94 L 01/10/20 21:01 96 01/10/20 19:06 98.5 F 75 14 128/70 97 01/10/20 15:18 73 18 01/10/20 14:53 97.7 F 73 18 125/68 92 L 01/10/20 14:15 67 18 114/69 96 01/10/20 12:41 99.0 F 73 18 126/70 98 01/10/20 11:37 24 Intake and Output 01/10/20 01/11/20 01/11/20 22:59 06:59 14:59 Intake Total 476 120 118 Balance 476 120 118 Intake: Oral 476 120 118 Other: # Voids 1 1 GENERAL EXAM: Alert, very pleasant, 74-year-old white female, currently on 2 L of oxygen with a pulse ox 95%, frequent persistent dry cough comfortable in no apparent distress. HEAD: Normocephalic/atraumatic. EYES: Normal reaction of pupils, equal size. Conjunctiva pink, sclera white. NOSE: Clear with pink turbinates. THROAT: No erythema or exudates. NECK: No masses, no JVD, no thyroid enlargement, no adenopathy. CHEST: No chest wall deformity. Symmetrical expansion. LUNGS: Equal air entry with crackles in bilateral bases, no wheeze, rhonchi or dullness. CVS: Regular rate and rhythm, normal S1 and S2, no gallops, no murmurs, no rubs ABDOMEN: Soft, nontender. No hepatosplenomegaly, normal bowel sounds, no guarding or rigidity. EXTREMITIES: No clubbing, no edema, no cyanosis, 2+ pulses and upper and lower extremities. MUSCULOSKELETAL: Muscle strength and tone normal. SPINE: No scoliosis or deformity SKIN: No rashes CENTRAL NERVOUS SYSTEM: Alert and oriented -3. No focal deficits, tone is normal in all 4 extremities. PSYCHIATRIC: Alert and oriented -3. Appropriate affect. Intact judgment and insight. Results - Laboratory Findings CBC and BMP: 01/10/20 12:04 01/10/20 12:04 PT/INR, D-dimer PT 10.2 sec (9.0-12.0) 01/10/20 12:04 INR 1.0 (<1.2) 01/10/20 12:04 D-Dimer 0.87 mg/L FEU (<0.60) H 01/10/20 12:04 Abnormal lab findings: Abnormal Labs 01/10/20 01/10/20 01/10/20 12:04 12:04 12:04 Lymphocytes # 0.7 L D-Dimer 0.87 H Sodium Carbon Dioxide BUN Creatinine Glucose Ferritin AST Lactate Dehydrogenase C-Reactive Protein Procalcitonin Coronavirus (PCR) Detected A 01/10/20 01/10/20 12:04 12:04 Lymphocytes # D-Dimer Sodium 130 L Carbon Dioxide 19 L BUN 22 H Creatinine 1.08 H Glucose 103 H Ferritin 1382.3 H AST 70 H Lactate Dehydrogenase 1207 H C-Reactive Protein 145.9 H Procalcitonin 0.70 H Coronavirus (PCR) - Diagnostic Findings Chest x-ray: report reviewed, image reviewed Assessment and Plan Plan: Assessment: #1. Acute COVID 19 related pneumonia #2. Possible superimposed bacterial pneumonia, community-acquired #3. Dyspnea, persistent febrile illness, dry cough related to the above #4. Hypertension #5. Hyperlipidemia #6. Diabetes pulses type II #7. Obesity #8. Osteoarthritis #9. Lifetime nonsmoker #10. History of bilateral breast cancer, status post bilateral mastectomy and chemo and radiation in 2012 Plan: We will add Plaquenil, 400 twice a day 2 doses today, and 200 twice a day for 4 more days, continue Rocephin and doxycycline, will hold off on IV steroids. Will add Robitussin with codeine for persistent dry cough repeat chest x-ray in the morning, repeat markers in the morning, continue monitoring febrile pattern, continue monitoring oxygenation demand. We'll continue to closely follow the course I performed a history & physical examination of the patient and discussed their management with my nurse practitioner, Echo Sanchez. I reviewed the nurse practitioner's note and agree with the documented findings and plan of care. Lung sounds are positive for bilateral crackles. The findings and the impression was discussed with the patient. I attest to the documentation by the nurse practitioner. Time with Patient: Greater than 30
[2020-01-11] MEDS: EXEMESTANE 25 MG PO SCH (12:51)
--- NOTE | 2020-01-11 13:15 | P.HPIM ---
History of Present Illness H&P Date: 01/11/20 This is a 74-year-old female patient of Dr. Swann with past medical history of hypertensive hypertensive cardiovascular disease, hyperlipidemia, right-sided breast cancer status post right lumpectomy followed by radiation therapy and subsequently had left breast cancer in 2005 with bi lateral mastectomy and left side in 2005 with chemotherapy, osteoarthritis. Patient complains of having a fever for one week. She initially presented to the emergency center on January 03 and was given Zithromax and discharged home. She continued to have fever after course of antibiotics were completed. Yesterday she woke up with shortness of breath and not feeling well. No chest pain or palpitations. No headache no numbness, weakness. No nausea vomiting or diarrhea. Denies any conjunctival symptoms. The patient felt that she was disoriented. She states that her urine was very dark and she was having a hard time drinking very much. She complains of cough and nausea. She has COVID-19 exposure with her neighbor that was documented positive for couple weeks ago. She denies ever seeing a pulmonary doctor in the past. She does not utilize oxygen or nebulizers at home. She denies any alcohol or smoking history. Patient presented to [facility] emergency center for evaluation. Temperature 100.9, heart rate 101, blood pressure 116/74. EKG was a sinus rhythm with no acute ST changes. Chest x-ray revealed CBC unremarkable, lymphocytes low at 0.7. Sodium 130, potassium 3.9, chloride 98, CO2 19, BUN 22 and creatinine 1.08, blood sugar 103. D-dimer 0.87. Infl uenza testing negative. COVID-19 positive. Lactic acid 0.9, proBNP 169. LDH 1207, C-reactive protein 145.9. Albumin 3.9. Chest x-ray reveals correlate for overload state or CHF exacerbation, mild cardiomegaly with new mild interstitial edema. Cannot exclude developing multifocal mid lung infiltrates. Patient started on ceftriaxone, Plaquenil, inhalers, consult with Dr. Masters and patient admitted to the [facility] floor. Review of Systems Constitutional: Reports chills, Reports fatigue, Reports fever, Reports malaise Eyes: denies blurred vision, denies pain Ears, nose, mouth and throat: Denies dysphagia, Denies headache, Denies nasal congestion, Denies nasal discharge, Denies sore throat, Denies vertigo Cardiovascular: Reports shortness of breath, Denies chest pain, Denies edema, Denies leg edema, Denies lightheadedness Respiratory: Reports cough, Reports dyspnea, Reports respiratory infections, Denies cough with sputum, Denies excessive sputum, Denies hemoptysis, Denies home oxygen Gastrointestinal: Reports nausea, Denies abdominal pain, Denies diarrhea, Denies vomiting Genitourinary: Denies dysuria, Denies hematuria, Denies urgency, Denies urinary frequency Musculoskeletal: Denies frequent falls, Denies gait dysfunction, Denies myalgias Integumentary: Denies pruritus, Denies rash, Denies wounds Neurological: Denies change in mentation, Denies change in speech, Denies numbness, Denies vertigo, Denies weakness Psychiatric: Denies anxiety, Denies depression Endocrine: Denies fatigue, Denies weight change Past Medical History Past Medical History: Cancer, Diabetes Mellitus, GERD/Reflux, Hyperlipidemia, Hypertension, Osteoarthritis (OA), Pneumonia Additional Past Medical History / Comment(s): 2005 R breast cancer with lumpectomy/radiation/mastectomy, 2012 L breast cancer with mastectomy, NIDDM type II-diet controlled, arthritis in back, occasional back pain, migraines, anemia, UTI. History of Any Multi-Drug Resistant Organisms: None Reported Past Surgical History: Adenoidectomy, Breast Surgery, Cholecystectomy, Joint Replacement, Orthopedic Surgery, Tonsillectomy Additional Past Surgical History / Comment(s): Bilateral breast biopsies, R breast lumpectomy/mastectomy, L breast mastectomy, port since removed, bilateral knee arthroscopies, bilateral total knee replacements, L rotator cuff repair, hysteroscopy/D&Cs, colposcopy/cyro for abnormal pap smear, rectal sphincter muscle surgery, hemorrhoidectomy, colonoscopies. Past Anesthesia/Blood Transfusion Reactions: Postoperative Nausea & Vomiting (PONV) Additional Past Anesthesia/Blood Transfusion Reaction / Comment(s): Pt states they have had a hard time with her blood pressure dropping. Smoking Status: Never smoker Additional Past Alcohol Use History / Comment(s): Patient is a lifelong nonsmoker, no alcohol use. - Past Family History Father Family Medical History: Cancer Additional Family Medical History / Comment(s): COLON CANCER Mother Family Medical History: Cancer Additional Family Medical History / Comment(s): Mother age 81 with history of LEUKEMIA. Brother(s) Family Medical History: Cancer Additional Family Medical History / Comment(s): Patient has 1 brother and he has history of prostate cancer. Sister(s) Family Medical History: Cancer Additional Family Medical History / Comment(s): Patient has 2 sisters and one sister has history of skin cancer, second sister has history of lung cancer. Daughter(s) Family Medical History: No Reported History Additional Family Medical History / Comment(s): Patient has one daughter with no major medical problems. Son(s) Family Medical History: No Reported History Additional Family Medical History / Comment(s): Patient has one son with no major medical problems. Medications and Allergies Home Medications Medication Instructions Recorded Confirmed Type Atenolol [Tenormin] 25 mg PO 05/01/14 01/10/20 History Losartan/Hydrochlorothiazide 1 tab PO QA 05/01/14 01/10/20 History [Losartan-Hctz 100-25 mg Tab] Lovastatin [Mevacor] 40 mg PO 05/01/14 01/10/20 History Exemestane 25 mg PO QAM 02/19/15 01/10/20 History Multivit-Min/Iron/Folic/Lutein 1 tab PO DAILY 01/10/20 01/10/20 History [Centrum Silver Women Tablet] Allergies Allergy/AdvReac Type Severity Reaction Status Date / Time adhesive tape Allergy Rash/Hives Verified 01/10/20 13:53 Physical Exam Vitals: Vital Signs Temp Pulse Pulse Resp BP BP Pulse Ox 01/11/20 07:00 99 F 82 18 137/72 96 01/11/20 05:24 98.6 F 85 97 01/11/20 02:34 100.4 F H 91 16 102/64 94 L 01/11/20 01:00 103 F H 101 H 22 90 L 01/10/20 22:51 103.0 F H 90 15 153/71 94 L 01/10/20 21:01 96 01/10/20 19:06 98.5 F 75 14 128/70 97 01/10/20 15:18 73 18 01/10/20 14:53 97.7 F 73 18 125/68 92 L 01/10/20 14:15 67 18 114/69 96 01/10/20 12:41 99.0 F 73 18 126/70 98 01/10/20 11:37 24 01/10/20 11:15 100.9 F H 101 H 18 116/74 93 L Intake and Output 01/10/20 01/11/20 01/11/20 22:59 06:59 14:59 Intake Total 476 120 Balance 476 120 Intake: Oral 476 120 Other: # Voids 1 1 Gen: This is a 74-year-old female. Patient is resting in bed appears to be comfortable. No acute respiratory distress is noted. She has occasional cough. HEENT: Head is atraumatic, normocephalic. Pupils equal, round. Sclerae is anicteric. NECK: Supple. No JVD. No lymphadenopathy. No thyromegaly. LUNGS: Crackles on the right side. No wheezes. No intercostal retractions. HEART: Regular rate and rhythm. No murmur. ABDOMEN: Soft. Bowel sounds are present. No masses. No tenderness. EXTREMITIES: No pedal edema. No calf tenderness. Dorsalis pedis +2 bilaterally. NEUROLOGICAL: Patient is awake, alert and oriented x3. Cranial nerves 2 through 12 are grossly intact. Results CBC & Chem 7: 01/10/20 12:04 01/10/20 12:04 Labs: Abnormal Lab Results - Last 24 Hours (Table) 01/10/20 01/10/20 01/10/20 Range/Units 12:04 12:04 12:04 Lymphocytes # 0.7 L (1.0-4.8) k/uL D-Dimer 0.87 H (<0.60) mg/L FEU Sodium (137-145) mmol/L Carbon Dioxide (22-30) mmol/L BUN (7-17) mg/dL Creatinine (0.52-1.04) mg/dL Glucose (74-99) mg/dL Ferritin (10.0-291.0) ng/mL AST (14-36) U/L Lactate Dehydrogenase (313-618) U/L C-Reactive Protein (<10.0) mg/L Procalcitonin (0.02-0.09) ng/mL Coronavirus (PCR) Detected A (Not Detectd) 01/10/20 01/10/20 Range/Units 12:04 12:04 Lymphocytes # (1.0-4.8) k/uL D-Dimer (<0.60) mg/L FEU Sodium 130 L (137-145) mmol/L Carbon Dioxide 19 L (22-30) mmol/L BUN 22 H (7-17) mg/dL Creatinine 1.08 H (0.52-1.04) mg/dL Glucose 103 H (74-99) mg/dL Ferritin 1382.3 H (10.0-291.0) ng/mL AST 70 H (14-36) U/L Lactate Dehydrogenase 1207 H (313-618) U/L C-Reactive Protein 145.9 H (<10.0) mg/L Procalcitonin 0.70 H (0.02-0.09) ng/mL Coronavirus (PCR) (Not Detectd) Thrombosis Risk Factor Assmnt - DVT/VTE Prophylaxis DVT/VTE Prophylaxis: Pharmacologic Prophylaxis ordered - Choose All That Apply Any of the Below Risk Factors Present?: Yes Each Factor Represents 1 point: Obesity (BMI >25), Serious lung disease incl. pneumonia (< 1month) Other Risk Factors: Yes Each Risk Factor Represents 2 Points: Age 61-74 years, Malignancy Other congenital or acquired thrombophilia - If yes, enter type in comment: No Thrombosis Risk Factor Assessment Total Risk Factor Score: 6 Thrombosis Risk Factor Assessment Level: High Risk Assessment and Plan Plan: 1. Acute COVID-19 infection with pneumonia, possible gram-negative pneumonia. Continue contact/droplet isolation. Consult with Dr. Sonam ferrera. Co ntinue albuterol inhaler as needed, Rocephin daily, Plaquenil, Robitussin with codeine. Repeat chest x-ray ordered for tomorrow. Blood culture is in progress. 2. Hypertension, hypertensive cardiovascular disease. Continue atenolol 25 mg at bedtime. Hold losartan/hydrochlorothiazide for now. Monitor blood pressure closely. 3. Hyperlipidemia. Continue statin. 4. History of breast cancer status post bilateral mastectomy. Continue Exemestane 25 mg daily. 5. GI prophylaxis. Protonix. 6. DVT prophylaxis. Lovenox. Patient will be admitted to the hospital for a minimum of 2 night stay. Discharge plan: Most likely return home. Impression and plan of care have been directed as dictated by the signing physician. Marilyn Fleming nurse practitioner acting as scribe for signing ph ysician.
[2020-01-11 13:59] VITALS: BMI 36.9
[2020-01-11] MEDS: ATENOLOL 25 MG TAB PO SCH (20:23)
[2020-01-11] MEDS: ATORVASTATIN 10 MG TAB PO SCH (20:23)
[2020-01-12] MEDS: PANTOPRAZOLE 40 MG TABLET PO SCH (07:25)
[2020-01-12] MEDS: ZINC SULFATE 220 MG CAP PO SCH (07:26)
[2020-01-12] MEDS: ENOXAPARIN 40 MG/0.4 ML SYRINGE SQ SCH (07:26)
[2020-01-12] MEDS: MULTIVITAMINS, THERA 1 EACH TAB PO SCH (07:26)
[2020-01-12] MEDS: EXEMESTANE 25 MG PO SCH (07:27)
--- NOTE | 2020-01-12 07:51 | XR ---
EXAMINATION TYPE: XR chest 1V portable DATE OF EXAM: 01/12/2020 HISTORY: covid. REFERENCE: Previous study dated 01/10/2020. FINDINGS: Heart size is prominent. There is patchy bilateral infiltrates. Pleural spaces appear clear . IMPRESSION: SLIGHT WORSENING IN THE APPEARANCE OF THE CHEST.
[2020-01-12] MEDS: ALBUTEROL HFA INHALER INHALATION PRN (07:57)
[2020-01-12] MEDS: HYDROXYCHLOROQUINE SULFATE 200 MG TAB PO SCH ×2 (08:16→21:16)
[2020-01-12 09:31] LABS: C Reactive Protein 84.1 mg/L (<10.0)
[2020-01-12] MEDS ORDERED: PROMETHAZINE 25 MG TAB PO PRN (09:44)
[2020-01-12] MEDS: LOPERAMIDE 2 MG CAP PO PRN ×2 (10:46→17:12)
--- NOTE | 2020-01-12 11:19 | P.PN ---
Subjective Progress Note Date: 01/12/20 Principal diagnosis: Acute COVID 19 infection, gram-negative pneumonia, severe dyspnea and shortness of breath, abdominal pain, hypertension and history of breast cancer. This is a 74-year-old female patient of Dr. Swann with past medical history of hypertensive hypertensive cardiovascular disease, hyperlipidemia, right-sided breast cancer status post right lumpectomy followed by radiation therapy and subsequently had left breast cancer in 2005 with bilateral mastectomy and left side in 2005 with chemotherapy, osteoarthritis. Patient complains of having a fever for one week. She initially presented to the emergency center on January 03 and was given Zithromax and discharged home. She continued to have fever after course of antibiotics were completed. Ye day she woke up with shortness of breath and not feeling well. No chest pain or palpitations. No headache no numbness, weakness. No nausea vomiting or diarrhea. Denies any conjunctival symptoms. The patient felt that she was disoriented. She states that her urine was very dark and she was having a hard time drinking very much. She complains of cough and nausea. She has COVID-19 exposure with her neighbor that was documented positive for couple weeks ago. She denies ever seeing a pulmonary doctor in the past. She does not utilize oxygen or nebulizers at home. She denies any alcohol or smoking history. Patient presented to [facility] emergency center for evalua tion. Temperature 100.9, heart rate 101, blood pressure 116/74. EKG was a sinus rhythm with no acute ST changes. Chest x-ray revealed CBC unremarkable, lymphocytes low at 0.7. Sodium 130, potassium 3.9, chloride 98, CO2 19, BUN 22 and creatinine 1.08, blood sugar 103. D-dimer 0.87. Influenza testing negative. COVID-19 positive. Lactic acid 0.9, proBNP 169. LDH 1207, C-reactive protein 145.9. Albumin 3.9. Chest x-ray reveals correlate for overload state or CHF exacerbation, mild cardiomegaly with new mild interstitial edema. Cannot exclude developing multifocal mid lung infiltrates. Patient started on ceftriaxone, Plaquenil, inhalers, consult with Dr. Masters and patient admitted to the [facility] floor. 01/11: Patient is feeling slightly but better developed to have significant g astrointestinal symptoms such as diarrhea with her current cough and shortness of breath, hypoxia as well treated, low-grade temperature has improved significantly on current management. Patient was started on Plaquenil but no azithromycin. Medically very stable at this point. Objective - Vital Signs Vital signs: Vital Signs Temp 98.4 F 01/12/20 07:00 Pulse 72 01/12/20 07:00 Resp 20 01/12/20 07:00 BP 115/62 01/12/20 07:00 Pulse Ox 90 L 01/12/20 07:00 Intake & Output 01/11/20 01/12/20 01/12/20 18:59 06:59 18:59 Intake Total 118 900 200 Balance 118 900 200 Weight 100.698 kg Intake: Intake, IV Titration 900 Amount Sodium Chloride 0.9% 1, 900 000 ml @ 75 mls/hr IV . [id number] ONE Rx#:[id number] Oral 118 200 Other: Voiding Method Toilet # Voids 1 1 - Exam Review of Systems Constitutional: Reports chills, Reports fatigue, Reports fever, Reports malaise Eyes: denies blurred vision, denies pain Ears, nose, mouth and throat: Denies dysphagia, Denies headache, Denies nasal congestion, Denies nasal discharge, Denies sore throat, Denies vertigo Cardiovascular: Reports shortness of breath, Denies chest pain, Denies edema, Denies leg edema, Denies lightheadedness Respiratory: Reports cough, Reports dyspnea, Reports respiratory infections, Denies cough with sputum, Denies excessive sputum, Denies hemoptysis, Denies home oxygen Gastrointestinal: Reports nausea, Denies abdominal pain, Denies diarrhea, Denies vomiting Genitourinary: Denies dysuria, Denies hematuria, Denies urgency, Denies urinary frequency Musculoskeletal: Denies frequent falls, Denies gait dysfunction, Denies myalgias Integumentary: Denies pruritus, Denies rash, Denies wounds Neurological: Denies change in mentation, Denies change in speech, Denies numbne ss, Denies vertigo, Denies weakness Psychiatric: Denies anxiety, Denies depression Endocrine: Denies fatigue, Denies weight change Physical Exam Vitals: Vital Signs Gen: This is a 74-year-old female. Patient is resting in bed appears to be comfortable. No acute respiratory distress is noted. She has occasional cough. HEENT: Head is atraumatic, normocephalic. Pupils equal, round. Sclerae is anicteric. NECK: Supple. No JVD. No lymphadenopathy. No thyromegaly. LUNGS: Crackles on the right side. No wheezes. No intercostal retractions. HEART: Regular rate and rhythm. No murmur. ABDOMEN: Soft. Bowel sounds are present. No masses. No tenderness. EXTREMITIES: No pedal edema. No calf tenderness. Dorsalis pedis +2 bilaterally. NEUROLOGICAL: Patient is awake, alert and oriented x3. Cranial nerves 2 through 12 are grossly intact. - Labs CBC & Chem 7: 01/10/20 12:04 01/10/20 12:04 Labs: Abnormal Lab Results - Last 24 Hours (Table) 01/12/20 01/12/20 Range/Units 08:53 08:53 D-Dimer 1.26 H (<0.60) mg/L FEU C-Reactive Protein 84.1 H (<10.0) mg/L Microbiology - Last 24 Hours (Table) 01/10/20 12:04 Blood Culture - Preliminary Blood No Growth after 24 hours Assessment and Plan Plan: 1. Acute COVID-19 infection with pneumonia, possible gram-negative pneumonia. Continue contact/droplet isolation. Consult with Dr. Sonam ferrera. Continue albuterol inhaler as needed, Rocephin daily, Plaquenil, Robitussin with codeine. Repeat chest x-ray ordered for tomorrow. Blood culture is in progress. 2. Hypertension, hypertensive cardiovascular disease. Continue atenolol 25 mg at bedtime. Hold losartan/hydrochlorothiazide for now. Monitor blood pressure closely. 3. Hyperlipidemia. Continue statin. 4. History of breast cancer status post bilateral mastectomy. Continue Exemestane 25 mg daily. 5. GI prophylaxis. Protonix. 6 acute gastrointestinal symptoms: Secondary to the coronavirus infection continue supportive care with hydration, mild antidiarrhea medication if needed and Zofran for nausea.
--- NOTE | 2020-01-12 11:40 | P.PN ---
Subjective Progress Note Date: 01/12/20 Principal diagnosis: Acute CoVID 19 pneumonia 74-year-old white female patient with past medical history of hypertension, hyperlipidemia, diabetes mellitus type 2, osteoarthritis, lifetime nonsmoker, bilateral breast cancer status post bilateral mastectomy and chemoradiation th erapy in 2012, who was in the emergency department on 01/04/2020 with complaints of cough and fever of 5 day duration. Her vitals were stable then, she was on room air, chest x-ray showed no acute process, and patient was discharged home on azithromycin. Patient was not tested for COVID 19. Patient does admit to being exposed to coronavirus, her neighbor was hospitalized for 5 days with Covid 19 infection, and apparently she did come over to visit. On 01/10/2020 patient came in with shortness of breath, persistent fevers, dry cough, not feeling well. No nausea vomiting or diarrhea no conjunctival symptoms. Her chest x-ray showed increased interstitial prominence, no pleural effusions, cannot exclude developing multifocal mid lung infiltrates. Blood work showed normal white count of 5.1, lymphopenia at 0.7, d-dimer was 0.87, sodium was 1:30, potassium 3.9, CO2 was 19, B1 is 22, creatinine is 1.08, ferritin was elevated 1382, plasma lactic acid was 0.9, AST was 70, ALT was 33, alkaline phosphatase 75, LDH was 1207, C-reactive protein was 145, protein acetone was also elevated to 0.70, influenza screen was negative, coronavirus was detected on the PCR test. T-max in the last 24 hours was 10 3F, patient is currently on 2 L of oxygen the pulse ox of 95%, hemodynamically stable, she has a persistent dry cough, and shortness of breath with exertion. Lung sounds reveal coarse crackles in bilateral bases, patient has been started on a combination of antibiotics, including ceftriaxone and doxycycline, and Plaquenil. The patient is seen today 01/12/2020 in follow-up on the regular medical floor. She is currently awake and alert in no acute distress. She denies any worsening shortness of breath, cough or congestion. She is maintaining O2 saturations in the 90s on 2 L/m per nasal cannula. Chest x-ray reveals bilateral patchy infiltrates slightly worse today. Blood culture reveals no growth to date. D- dimer 1.26. C-reactive protein 84. She is continued on ceftriaxone, Plaquenil, zinc. She continues with a loose nonproductive cough. She was nauseated from the Robitussin with codeine. Objective - Vital Signs Vital signs: Vital Signs Temp 98.4 F 01/12/20 07:00 Pulse 72 01/12/20 07:00 Resp 20 01/12/20 07:00 BP 115/62 01/12/20 07:00 Pulse Ox 90 L 01/12/20 07:00 Intake & Output 01/11/20 01/12/20 01/12/20 18:59 06:59 18:59 Intake Total 118 900 200 Balance 118 900 200 Weight 100.698 kg Intake: Intake, IV Titration 900 Amount Sodium Chloride 0.9% 1, 900 000 ml @ 75 mls/hr IV . [id number] ONE Rx#:[id number] Oral 118 200 Other: Voiding Method Toilet # Voids 1 1 - Exam GENERAL EXAM: Alert, very pleasant, 74-year-old female patient, currently on 2 L of oxygen with a pulse ox 90%, frequent persistent dry cough comfortable in no apparent distress. HEAD: Normocephalic/atraumatic. EYES: Normal reaction of pupils, equal size. Conjunctiva pink, sclera white. NOSE: Clear with pink turbinates. THROAT: No erythema or exudates. NECK: No masses, no JVD, no thyroid enlargement, no adenopathy. CHEST: No chest wall deformity. Symmetrical expansion. LUNGS: Equal air entry with crackles in bilateral bases, no wheeze, rhonchi or dullness. CVS: Regular rate and rhythm, normal S1 and S2, no gallops, no murmurs, no rubs ABDOMEN: Soft, nontender. No hepatosplenomegaly, normal bowel sounds, no guarding or rigidity. EXTREMITIES: No clubbing, no edema, no cyanosis, 2+ pulses and upper and lower extremities. MUSCULOSKELETAL: Muscle strength and tone normal. SPINE: No scoliosis or deformity SKIN: No rashes CENTRAL NERVOUS SYSTEM: No focal deficits, tone is normal in all 4 extremities. PSYCHIATRIC: Alert and oriented -3. Appropriate affect. Intact judgment and insight. - Labs CBC & Chem 7: 01/10/20 12:04 01/10/20 12:04 Labs: Abnormal Lab Results - Last 24 Hours (Table) 01/12/20 01/12/20 Range/Units 08:53 08:53 D-Dimer 1.26 H (<0.60) mg/L FEU C-Reactive Protein 84.1 H (<10.0) mg/L Microbiology - Last 24 Hours (Table) 01/10/20 12:04 Blood Culture - Preliminary Blood No Growth after 24 hours Assessment and Plan Assessment: #1. Acute COVID 19 related pneumonia #2. Possible superimposed bacterial pneumonia, community-acquired #3. Dyspnea, persistent febrile illness, dry cough related to the above #4. Hypertension #5. Hyperlipidemia #6. Diabetes pulses type II #7. Obesity #8. Osteoarthritis #9. Lifetime nonsmoker #10. History of bilateral breast cancer, status post bilateral mastectomy and chemo and radiation in 2012 Plan: The patient was seen and evaluated by Dr. Masters. Chest x-ray and labs reviewed Discontinue Rocephin with codeine due to nausea Add Phenergan Continue Plaquenil, ceftriaxone and zinc. Repeat labs in a.m. Repeat chest x-ray in a.m. We'll continue to follow and make further recommendations based on her clinical status I, the cosigning physician, performed a history & physical examination of the patient. Lungs sounds with basilar crackles Maintaining good O2 saturations in the 90s on 2 L/m per nasal cannula. I discussed the assessment and plan of care with my nurse practitioner, Denia Bae. I attest to the above note as dictated by her.
[2020-01-12] MEDS: ACETAMINOPHEN TAB 325 MG TAB PO PRN (12:05)
[2020-01-12 17:38] LABS: Ferritin 1546.8 ng/mL (10.0-291.0)
[2020-01-12] MEDS: ATORVASTATIN 10 MG TAB PO SCH (21:16)
[2020-01-12] MEDS: ATENOLOL 25 MG TAB PO SCH (21:16)
--- NOTE | 2020-01-13 07:02 | XR ---
EXAMINATION TYPE: XR chest 1V portable DATE OF EXAM: 01/13/2020 HISTORY: CoVID pneumonia. REFERENCE: Previous study dated 01/12/2020. FINDINGS: There is been continued deterioration of the appearance of the chest with worsening bilater al infiltrates. The heart is enlarged. I cannot exclude a small left effusion. IMPRESSION: 1. CARDIOMEGALY. 2. WORSENING BILATERAL INFILTRATES.
[2020-01-13 07:53] LABS: C Reactive Protein 74.6 mg/L (<10.0)
[2020-01-13] MEDS: HYDROXYCHLOROQUINE SULFATE 200 MG TAB PO SCH ×2 (08:20→19:56)
[2020-01-13] MEDS: ENOXAPARIN 40 MG/0.4 ML SYRINGE SQ SCH (08:20)
[2020-01-13] MEDS: MULTIVITAMINS, THERA 1 EACH TAB PO SCH (08:20)
[2020-01-13] MEDS: EXEMESTANE 25 MG PO SCH (08:20)
[2020-01-13] MEDS: ZINC SULFATE 220 MG CAP PO SCH (08:20)
[2020-01-13] MEDS: PANTOPRAZOLE 40 MG TABLET PO SCH (08:20)
[2020-01-13] MEDS ORDERED: FUROSEMIDE 10 MG/ML 4 ML VIAL IV STA (08:35)
[2020-01-13] MEDS: ONDANSETRON 4 MG TAB PO PRN ×2 (09:14→19:57)
--- NOTE | 2020-01-13 10:34 | P.PN ---
Subjective Progress Note Date: 01/13/20 Principal diagnosis: Acute COVID 19 infection, gram-negative pneumonia, severe dyspnea and shortness of breath, abdominal pain, hypertension and history of breast cancer. This is a 74-year-old female patient of Dr. Swann with past medical history of hypertensive hypertensive cardiovascular disease, hyperlipidemia, right-sided breast cancer status post right lumpectomy followed by radiation therapy and subsequently had left breast cancer in 2005 with bilateral mastectomy and left side in 2005 with chemotherapy, osteoarthritis. Patient complains of having a fever for one week. She initially presented to the emergency center on January 03 and was given Zithromax and discharged home. She continued to have fever after course of antibiotics were completed. Ye day she woke up with shortness of breath and not feeling well. No chest pain or palpitations. No headache no numbness, weakness. No nausea vomiting or diarrhea. Denies any conjunctival symptoms. The patient felt that she was disoriented. She states that her urine was very dark and she was having a hard time drinking very much. She complains of cough and nausea. She has COVID-19 exposure with her neighbor that was documented positive for couple weeks ago. She denies ever seeing a pulmonary doctor in the past. She does not utilize oxygen or nebulizers at home. She denies any alcohol or smoking history. Patient presented to [facility] emergency center for evalua tion. Temperature 100.9, heart rate 101, blood pressure 116/74. EKG was a sinus rhythm with no acute ST changes. Chest x-ray revealed CBC unremarkable, lymphocytes low at 0.7. Sodium 130, potassium 3.9, chloride 98, CO2 19, BUN 22 and creatinine 1.08, blood sugar 103. D-dimer 0.87. Influenza testing negative. COVID-19 positive. Lactic acid 0.9, proBNP 169. LDH 1207, C-reactive protein 145.9. Albumin 3.9. Chest x-ray reveals correlate for overload state or CHF exacerbation, mild cardiomegaly with new mild interstitial edema. Cannot exclude developing multifocal mid lung infiltrates. Patient started on ceftriaxone, Plaquenil, inhalers, consult with Dr. Masters and patient admitted to the [facility] floor. 01/11: Patient is feeling slightly but better developed to have significant g astrointestinal symptoms such as diarrhea with her current cough and shortness of breath, hypoxia as well treated, low-grade temperature has improved significantly on current management. Patient was started on Plaquenil but no azithromycin. Medically very stable at this point. 01/12: Patient is feeling much better she still having mild nausea to the Plaquenil but no more diarrhea at this point, hypoxia has improved significantly she is down to 2 L on O2 pulse ox running over 95 percentile. No for low-grade temperature and her cough has improved significantly. Objective - Vital Signs Vital signs: Vital Signs Temp 98.6 F 01/13/20 07:00 Pulse 72 01/13/20 07:00 Resp 19 01/13/20 07:00 BP 127/72 01/13/20 07:00 Pulse Ox 92 L 01/13/20 08:41 Intake & Output 01/12/20 01/13/20 01/13/20 18:59 06:59 18:59 Intake Total 300 Balance 300 Intake: Oral 300 Other: Voiding Method Toilet # Voids 4 1 # Bowel Movements 2 - Exam Review of Systems Constitutional: Reports chills, Reports fatigue, Reports fever, Reports malaise Eyes: denies blurred vision, denies pain Ears, nose, mouth and throat: Denies dysphagia, Denies headache, Denies nasal congestion, Denies nasal discharge, Denies sore throat, Denies vertigo Cardiovascular: Reports shortness of breath, Denies chest pain, Denies edema, Denies leg edema, Denies lightheadedness Respiratory: Reports cough, Reports dyspnea, Reports respiratory infections, Denies cough with sputum, Denies excessive sputum, Denies hemoptysis, Denies home oxygen Gastrointestinal: Reports nausea, Denies abdominal pain, Denies diarrhea, Denies vomiting Genitourinary: Denies dysuria, Denies hematuria, Denies urgency, Denies urinary frequency Musculoskeletal: Denies frequent falls, Denies gait dysfunction, Denies myalgias Integumentary: Denies pruritus, Denies rash, Denies wounds Neurological: Denies change in mentation, Denies change in speech, Denies numbness, Denies vertigo, Denies weakness Psychiatric: Denies anxiety, Denies depression Endocrine: Denies fatigue, Denies weight change Physical Exam Vitals: Vital Signs Gen: This is a 74-year-old female. Patient is resting in bed appears to be comfortable. No acute respiratory distress is noted. She has occasional cough. HEENT: Head is atraumatic, normocephalic. Pupils equal, round. Sclerae is anicteric. NECK: Supple. No JVD. No lymphadenopathy. No thyromegaly. LUNGS: Crackles on the right side. No wheezes. No intercostal retractions. HEART: Regular rate and rhythm. No murmur. ABDOMEN: Soft. Bowel sounds are present. No masses. No tenderness. EXTREMITIES: No pedal edema. No calf tenderness. Dorsalis pedis +2 bilaterally. NEUROLOGICAL: Patient is awake, alert and oriented x3. Cranial nerves 2 through 12 are grossly intact. - Labs CBC & Chem 7: 01/10/20 12:04 01/10/20 12:04 Labs: Abnormal Lab Results - Last 24 Hours (Table) 01/12/20 01/13/20 01/13/20 Range/Units 08:53 07:00 07:00 D-Dimer 1.32 H (<0.60) mg/L FEU Ferritin 1546.8 H (10.0-291.0) ng/mL Lactate Dehydrogenase 903 H (313-618) U/L C-Reactive Protein 74.6 H (<10.0) mg/L Microbiology - Last 24 Hours (Table) 01/10/20 12:04 Blood Culture - Preliminary Blood No Growth after 48 hours Assessment and Plan Plan: 1. Acute COVID-19 infection with pneumonia, possible gram-negative pneumonia. Continue contact/droplet isolation. Patient is on Plaquenil and azithromycin, with slight side effect medication which is doing well her medication will be complete on late Tuesday early Tuesday each patient will be probably ready to go home by then, no major complication related to Covid 19 at this point with severe hypoxia cough has improved and low-grade temperatures much better. 2. Hypertension, hypertensive cardiovascular disease. Continue atenolol 25 mg at bedtime. Hold losartan/hydrochlorothiazide for now. Monitor blood pressure closely. 3. Hyperlipidemia. Continue statin. 4. History of breast cancer status post bilateral mastectomy. Continue Exemestane 25 mg daily. 5. GI prophylaxis. Protonix. 6 acute gastrointestinal symptoms: Secondary to the coronavirus infection c ontinue supportive care with hydration, mild antidiarrhea medication if needed and Zofran for nausea. Discharge planning: Possibly home in 48 hours.
--- NOTE | 2020-01-13 11:32 | P.PN ---
Subjective Progress Note Date: 01/13/20 Principal diagnosis: Acute CoVID 19 pneumonia 74-year-old white female patient with past medical history of hypertension, hyperlipidemia, diabetes mellitus type 2, osteoarthritis, lifetime nonsmoker, bilateral breast cancer status post bilateral mastectomy and chemoradiation th erapy in 2012, who was in the emergency department on 01/04/2020 with complaints of cough and fever of 5 day duration. Her vitals were stable then, she was on room air, chest x-ray showed no acute process, and patient was discharged home on azithromycin. Patient was not tested for COVID 19. Patient does admit to being exposed to coronavirus, her neighbor was hospitalized for 5 days with Covid 19 infection, and apparently she did come over to visit. On 01/10/2020 patient came in with shortness of breath, persistent fevers, dry cough, not feeling well. No nausea vomiting or diarrhea no conjunctival symptoms. Her chest x-ray showed increased interstitial prominence, no pleural effusions, cannot exclude developing multifocal mid lung infiltrates. Blood work showed normal white count of 5.1, lymphopenia at 0.7, d-dimer was 0.87, sodium was 1:30, potassium 3.9, CO2 was 19, B1 is 22, creatinine is 1.08, ferritin was elevated 1382, plasma lactic acid was 0.9, AST was 70, ALT was 33, alkaline phosphatase 75, LDH was 1207, C-reactive protein was 145, protein acetone was also elevated to 0.70, influenza screen was negative, coronavirus was detected on the PCR test. T-max in the last 24 hours was 10 3F, patient is currently on 2 L of oxygen the pulse ox of 95%, hemodynamically stable, she has a persistent dry cough, and shortness of breath with exertion. Lung sounds reveal coarse crackles in bilateral bases, patient has been started on a combination of antibiotics, including ceftriaxone and doxycycline, and Plaquenil. The patient is seen today 01/12/2020 in follow-up on the regular medical floor. She is currently awake and alert in no acute distress. She denies any worsening shortness of breath, cough or congestion. She is maintaining O2 saturations in the 90s on 2 L/m per nasal cannula. Chest x-ray reveals bilateral patchy infiltrates slightly worse today. Blood culture reveals no growth to date. D- dimer 1.26. C-reactive protein 84. She is continued on ceftriaxone, Plaquenil, zinc. She continues with a loose nonproductive cough. She was nauseated from the Robitussin with codeine. The patient is seen today 01/13/2020 in follow-up on the regular medical floor. She remains awake and alert in no acute distress. She states her breathing is better compared to yesterday. She is coughing less. She is still maintaining O2 saturations in the low 90s on 2 L/m per nasal cannula. Currently afebrile. Hemodynamically stable. Her chest x-ray however is showing worsening bilateral infiltrates. Evidence of cardiomegaly. Small left effusion. D-dimer up slightly to 1.32. LDH 903. C-reactive protein 75. Both trending down. She is having issues with diarrhea. She is on Imodium as needed. She remains on ceftriaxone, hydroxychloroquine, zinc. She remains on Lovenox for DVT prophylaxis. Objective - Vital Signs Vital signs: Vital Signs Temp 98.9 F 01/13/20 11:08 Pulse 87 01/13/20 11:08 Resp 23 01/13/20 11:08 BP 136/69 01/13/20 11:08 Pulse Ox 90 L 01/13/20 11:08 Intake & Output 01/12/20 01/13/20 01/13/20 18:59 06:59 18:59 Intake Total 300 Balance 300 Intake: Oral 300 Other: Voiding Method Toilet # Voids 4 1 # Bowel Movements 2 - Exam GENERAL EXAM: Alert, very pleasant, 74-year-old female patient, currently on 2 L of oxygen with a pulse ox 90%, dry cough, comfortable in no apparent distress. HEAD: Normocephalic/atraumatic. EYES: Normal reaction of pupils, equal size. Conjunctiva pink, sclera white. NOSE: Clear with pink turbinates. THROAT: No erythema or exudates. NECK: No masses, no JVD, no thyroid enlargement, no adenopathy. CHEST: No chest wall deformity. Symmetrical expansion. LUNGS: Equal air entry with crackles in bilateral bases, no wheeze, rhonchi or dullness. CVS: Regular rate and rhythm, normal S1 and S2, no gallops, no murmurs, no rubs ABDOMEN: Soft, nontender. No hepatosplenomegaly, normal bowel sounds, no guarding or rigidity. EXTREMITIES: No clubbing, no edema, no cyanosis, 2+ pulses and upper and lower extremities. MUSCULOSKELETAL: Muscle strength and tone normal. SPINE: No scoliosis or deformity SKIN: No rashes CENTRAL NERVOUS SYSTEM: No focal deficits, tone is normal in all 4 extremities. PSYCHIATRIC: Alert and oriented -3. Appropriate affect. Intact judgment and insight. - Labs CBC & Chem 7: 01/10/20 12:04 01/10/20 12:04 Labs: Abnormal Lab Results - Last 24 Hours (Table) 01/12/20 01/13/20 01/13/20 Range/Units 08:53 07:00 07:00 D-Dimer 1.32 H (<0.60) mg/L FEU Ferritin 1546.8 H (10.0-291.0) ng/mL Lactate Dehydrogenase 903 H (313-618) U/L C-Reactive Protein 74.6 H (<10.0) mg/L Microbiology - Last 24 Hours (Table) 01/10/20 12:04 Blood Culture - Preliminary Blood No Growth after 48 hours Assessment and Plan Assessment: #1. Acute COVID 19 related pneumonia #2. Possible superimposed bacterial pneumonia, community-acquired #3. Dyspnea, persistent febrile illness, dry cough related to the above #4. Hypertension #5. Hyperlipidemia #6. Diabetes pulses type II #7. Obesity #8. Osteoarthritis #9. Lifetime nonsmoker #10. History of bilateral breast cancer, status post bilateral mastectomy and chemo and radiation in 2012 Plan: The patient was seen and evaluated by Dr. Masters. Chest x-ray and labs reviewed Worsening bilateral infiltrates, but clinically improving Continue Plaquenil, ceftriaxone and zinc Continue Lovenox Repeat chest x-ray in a.m. We'll continue to follow and make further recommendations based on her clinical status I, the cosigning physician, performed a history & physical examination of the patient. Lungs sounds with basilar crackles Maintaining good O2 saturations in the 90s on 2 L/m per nasal cannula. I discussed the assessment and plan of care with my nurse practitioner, Denia Bae. I attest to the above note as dictated by her.
[2020-01-13] MEDS: ATENOLOL 25 MG TAB PO SCH (19:56)
[2020-01-13] MEDS: ATORVASTATIN 10 MG TAB PO SCH (19:56)
[2020-01-14] MEDS: PANTOPRAZOLE 40 MG TABLET PO SCH (07:19)
--- NOTE | 2020-01-14 07:45 | XR ---
EXAMINATION TYPE: XR chest 1V portable DATE OF EXAM: 01/14/2020 HISTORY: Shortness of breath. COMPARISON: 01/13/2020 TECHNIQUE: Single view of the chest is submitted. FINDINGS: Demonstrated are scattered senescent parenchymal change. Scattered alveolar infiltrates throughout both lung andrews persist with slight improvement suggested. The heart is stable. Hilar and mediastinal structures are within normal limits. Degenerative changes are seen of the dorsal spine. IMPRESSION: 1. Scattered alveolar infiltrates throughout both lung andrews persist with slight improvement sugges yancy.
[2020-01-14] MEDS: MULTIVITAMINS, THERA 1 EACH TAB PO SCH (08:38)
[2020-01-14] MEDS: ENOXAPARIN 40 MG/0.4 ML SYRINGE SQ SCH (08:39)
[2020-01-14] MEDS: HYDROXYCHLOROQUINE SULFATE 200 MG TAB PO SCH ×2 (08:39→20:22)
[2020-01-14] MEDS: EXEMESTANE 25 MG PO SCH (08:39)
[2020-01-14] MEDS: ZINC SULFATE 220 MG CAP PO SCH (08:39)
[2020-01-14] MEDS: LOPERAMIDE 2 MG CAP PO PRN (08:56)
[2020-01-14 09:54] LABS: Basophils % (A) 1 %; Eosinophils # (A) 0.2 k/uL (0-0.7); Eosinophils % (A) 2 %; HCT 34.7 % (34.0-46.0); HGB 11.5 gm/dL (11.4-16.0); Lymphocytes # (A) 0.8 k/uL (1.0-4.8); Lymphocytes % (A) 12 %; MCH 29.4 pg (25.0-35.0); MCHC 33.1 g/dL (31.0-37.0); MCV 88.7 fL (80.0-100.0); Mean Platelet Volume 6.8; Monocytes # (A) 0.3 k/uL (0-1.0); Monocytes % (A) 5 %; Neutrophils # (A) 4.9 k/uL (1.3-7.7); Neutrophils % (A) 78 %; Platelet Count 461 k/uL (150-450); RBC 3.91 m/uL (3.80-5.40); RDW 12.8 % (11.5-15.5); WBC 6.3 k/uL (3.8-10.6)
[2020-01-14 10:15] LABS: ALT 44 U/L (4-34); AST 45 U/L (14-36); African American GFR (CKD) >90 (>60 ml/min/1.73 sqM); Albumin 3.1 g/dL (3.5-5.0); Alkaline Phosphatase 56 U/L (38-126); Anion Gap 8 mmol/L; Blood Urea Nitrogen 19 mg/dL (7-17); Carbon Dioxide 23 mmol/L (22-30); Chloride 109 mmol/L (98-107); Glucose 91 mg/dL (74-99); Non-African American GFR(CKD) 87 (>60 ml/min/1.73 sqM); Potassium 3.9 mmol/L (3.5-5.1); Sodium 140 mmol/L (137-145); Total Bilirubin 1.1 mg/dL (0.2-1.3); Total Protein 6.1 g/dL (6.3-8.2)
--- NOTE | 2020-01-14 10:38 | P.PN ---
Subjective Progress Note Date: 01/14/20 This is a 74-year-old female patient of Dr. Swann with past medical history of hypertensive hypertensive cardiovascular disease, hyperlipidemia, right-sided breast cancer status post right lumpectomy followed by radiation therapy and subsequently had left breast cancer in 2005 with bilateral mastectomy and left side in 2005 with chemotherapy, osteoarthritis. Patient complains of having a fever for one week. She initially presented to the emergency center on January 03 and was given Zithromax and discharged home. She continued to have fever after course of antibiotics were completed. Y esterday she woke up with shortness of breath and not feeling well. No chest pain or palpitations. No headache no numbness, weakness. No nausea vomiting or diarrhea. Denies any conjunctival symptoms. The patient felt that she was disoriented. She states that her urine was very dark and she was having a hard time drinking very much. She complains of cough and nausea. She has COVID-19 exposure with her neighbor that was documented positive for couple weeks ago. She denies ever seeing a pulmonary doctor in the past. She does not utilize oxygen or nebulizers at home. She denies any alcohol or smoking history. Patient presented to [facility] emergency center for evalu ation. Temperature 100.9, heart rate 101, blood pressure 116/74. EKG was a sinus rhythm with no acute ST changes. Chest x-ray revealed CBC unremarkable, lymphocytes low at 0.7. Sodium 130, potassium 3.9, chloride 98, CO2 19, BUN 22 and creatinine 1.08, blood sugar 103. D-dimer 0.87. Influenza testing negative. COVID-19 positive. Lactic acid 0.9, proBNP 169. LDH 1207, C-reactive protein 145.9. Albumin 3.9. Chest x-ray reveals correlate for overload state or CHF exacerbation, mild cardiomegaly with new mild interstitial edema. Cannot exclude developing multifocal mid lung infiltrates. Patient started on ceftriaxone, Plaquenil, inhalers, consult with Dr. Masters and patient admitted to the [facility] floor. 01/11: Patient is feeling slightly but better developed to have significant gastrointestinal symptoms such as diarrhea with her current cough and shortness of breath, hypoxia as well treated, low-grade temperature has improved significantly on current management. Patient was started on Plaquenil but no azithromycin. Medically very stable at this point. 01/12: Patient is feeling much better she still having mild nausea to the Plaquenil but no more diarrhea at this point, hypoxia has improved significantly she is down to 2 L on O2 pulse ox running over 95 percentile. No for low-grade temperature and her cough has improved significantly. 01/13: Patient has been afebrile, heart rate in the 50s and 60s, blood pressure 144/74, pulse ox 91% on 2 L nasal cannula. Repeat lab work reveals WBC 6.3, hemoglobin 11.5, platelet count 461. Sodium 140, potassium 3.9, chloride 109, CO2 23, BUN 19 and creatinine 0.7. Total bilirubin 1.1, AST 45, ALT 44. Repeat chest x-ray reveals scattered alveolar infiltrates throughout both lung andrews persists with slight improvement. The patient feels that she is slowly improving and feels much better over the weekend. Patient will be completing course of Plaquenil tomorrow. Anticipate discharge home tomorrow. Objective - Vital Signs Vital signs: Vital Signs Temp 98.1 F 01/14/20 07:00 Pulse 59 L 01/14/20 07:00 Resp 18 01/14/20 07:00 BP 144/74 01/14/20 07:00 Pulse Ox 91 L 01/14/20 07:00 Intake & Output 01/13/20 01/14/20 01/14/20 18:59 06:59 18:59 Intake Total 600 Balance 600 Intake: Intake, IV Titration 600 Amount Sodium Chloride 0.9% 1, 600 000 ml @ 75 mls/hr IV . [id number] Rx#:[id number] Other: Voiding Method Toilet # Voids 4 0 - Exam Review of Systems Constitutional: Denies chills, Reports fatigue, denies fever, denies malaise Eyes: denies blurred vision, denies pain Ears, nose, mouth and throat: Denies dysphagia, Denies headache, Denies nasal congestion, Denies nasal discharge, Denies sore throat, Denies vertigo Cardiovascular: denies shortness of breath, Denies chest pain, Denies edema, Denies leg edema, Denies lightheadedness Respiratory: Reports cough, denies dyspnea, Reports respiratory infections, Denies cough with sputum, Denies excessive sputum, Denies hemoptysis, Denies home oxygen Gastrointestinal: Reports nausea, Denies abdominal pain, Denies diarrhea, Denies vomiting Genitourinary: Denies dysuria, Denies hematuria, Denies urgency, Denies urinary frequency Musculoskeletal: Denies frequent falls, Denies gait dysfunction, Denies myalgias Integumentary: Denies pruritus, Denies rash, Denies wounds Neurological: Denies change in mentation, Denies change in speech, Denies numbness, Denies vertigo, Denies weakness Psychiatric: Denies anxiety, Denies depression Endocrine: Denies fatigue, Denies weight change Physical Exam Gen: This is a 74-year-old female. Patient is resting in bed appears to be comfortable. No acute respiratory distress is noted. HEENT: Head is atraumatic, normocephalic. Pupils equal, round. Sclerae is anicteric. NECK: Supple. No JVD. No lymphadenopathy. No thyromegaly. LUNGS: Scattered crackles. No wheezes. No intercostal retractions. HEART: Regular rate and rhythm. No murmur. ABDOMEN: Soft. Bowel sounds are present. No masses. No tenderness. EXTREMITIES: No pedal edema. No calf tenderness. Dorsalis pedis +2 bilaterally. NEUROLOGICAL: Patient is awake, alert and oriented x3. Cranial nerves 2 through 12 are grossly intact. - Labs CBC & Chem 7: 01/14/20 09:37 01/14/20 09:37 Labs: Microbiology - Last 24 Hours (Table) 01/10/20 12:04 Blood Culture - Preliminary Blood No Growth after 72 hours Assessment and Plan Plan: 1. Acute COVID-19 infection with pneumonia. Continue contact/droplet isolation. Consult with Dr. Sonam ferrera. Continue albuterol inhaler as needed, Rocephin daily, Plaquenil, Robitussin with codeine. 2. Hypertension, hypertensive cardiovascular disease. Continue atenolol 25 mg at bedtime. Resume losartan/hydrochlorothiazide. 3. Hyperlipidemia. Continue statin. 4. History of breast cancer status post bilateral mastectomy. Continue Exemestane 25 mg daily. 5. Acute GI symptoms with diarrhea is likely secondary to Covid 19 infection. Continue Zofran as needed for nausea, Imodium. 6. GI prophylaxis. Protonix. 7. DVT prophylaxis. Lovenox. Discharge plan: Home on Tuesday. Impression and plan of care have been directed as dictated by the signing physician. Marilyn Fleming nurse practitioner acting as scribe for signing physician.
[2020-01-14 11:23] LABS: Ferritin 1157.6 ng/mL (10.0-291.0)
--- NOTE | 2020-01-14 12:25 | P.PN ---
Subjective Progress Note Date: 01/14/20 Principal diagnosis: Acute CoVID 19 pneumonia 74-year-old white female patient with past medical history of hypertension, hyperlipidemia, diabetes mellitus type 2, osteoarthritis, lifetime nonsmoker, bilateral breast cancer status post bilateral mastectomy and chemoradiation th erapy in 2012, who was in the emergency department on 01/04/2020 with complaints of cough and fever of 5 day duration. Her vitals were stable then, she was on room air, chest x-ray showed no acute process, and patient was discharged home on azithromycin. Patient was not tested for COVID 19. Patient does admit to being exposed to coronavirus, her neighbor was hospitalized for 5 days with Covid 19 infection, and apparently she did come over to visit. On 01/10/2020 patient came in with shortness of breath, persistent fevers, dry cough, not feeling well. No nausea vomiting or diarrhea no conjunctival symptoms. Her chest x-ray showed increased interstitial prominence, no pleural effusions, cannot exclude developing multifocal mid lung infiltrates. Blood work showed normal white count of 5.1, lymphopenia at 0.7, d-dimer was 0.87, sodium was 1:30, potassium 3.9, CO2 was 19, B1 is 22, creatinine is 1.08, ferritin was elevated 1382, plasma lactic acid was 0.9, AST was 70, ALT was 33, alkaline phosphatase 75, LDH was 1207, C-reactive protein was 145, protein acetone was also elevated to 0.70, influenza screen was negative, coronavirus was detected on the PCR test. T-max in the last 24 hours was 10 3F, patient is currently on 2 L of oxygen the pulse ox of 95%, hemodynamically stable, she has a persistent dry cough, and shortness of breath with exertion. Lung sounds reveal coarse crackles in bilateral bases, patient has been started on a combination of antibiotics, including ceftriaxone and doxycycline, and Plaquenil. The patient is seen today 01/12/2020 in follow-up on the regular medical floor. She is currently awake and alert in no acute distress. She denies any worsening shortness of breath, cough or congestion. She is maintaining O2 saturations in the 90s on 2 L/m per nasal cannula. Chest x-ray reveals bilateral patchy infiltrates slightly worse today. Blood culture reveals no growth to date. D- dimer 1.26. C-reactive protein 84. She is continued on ceftriaxone, Plaquenil, zinc. She continues with a loose nonproductive cough. She was nauseated from the Robitussin with codeine. The patient is seen today 01/13/2020 in follow-up on the regular medical floor. She remains awake and alert in no acute distress. She states her breathing is better compared to yesterday. She is coughing less. She is still maintaining O2 saturations in the low 90s on 2 L/m per nasal cannula. Currently afebrile. Hemodynamically stable. Her chest x-ray however is showing worsening bilateral infiltrates. Evidence of cardiomegaly. Small left effusion. D-dimer up slightly to 1.32. LDH 903. C-reactive protein 75. Both trending down. She is having issues with diarrhea. She is on Imodium as needed. She remains on ceftriaxone, hydroxychloroquine, zinc. She remains on Lovenox for DVT prophylaxis. The patient was seen today 01/14/2020 in follow-up with her regular medical floor with Dr. Molina. She is currently in no acute distress. Remains on 2 L nasal cannula with oxygen saturation 94%. Remains afebrile, hemodynamically stable. Chest x-ray demonstrates scattered sergei infiltrates throughout both lung andrews with slight improvement. White blood cell count 6.3. Hemoglobin 12.5. Platelet count 461. BUN 19. Creatinine 0.70. AST 45, ALT 44. No new concerns. Objective - Vital Signs Vital signs: Vital Signs Temp 98.1 F 01/14/20 11:17 Pulse 63 01/14/20 11:17 Resp 18 01/14/20 11:17 BP 156/71 01/14/20 11:17 Pulse Ox 94 L 01/14/20 11:17 Intake & Output 01/13/20 01/14/20 01/14/20 18:59 06:59 18:59 Intake Total 600 Balance 600 Intake: Intake, IV Titration 600 Amount Sodium Chloride 0.9% 1, 600 000 ml @ 75 mls/hr IV . [id number] ONE Rx#:[id number] Other: Voiding Method Toilet Toilet # Voids 4 0 - Constitutional Constitutional Comment(s): Sitting up in bed and appears comfortable General appearance: Present: cooperative, no acute distress, obese - Respiratory Details: Lungs sounds diminished with crackles in the bilateral bases. Respirations even, nonlabored. Currently on 2 L nasal cannula with oxygen saturation 94%. - Cardiovascular Details: S1, S2 present. Slow foot regular rate and rhythm, sinus bradycardia on te lemetry. Palpable peripheral pulses bilaterally. No edema present. No calf pain or tenderness noted. - Gastrointestinal Gastrointestinal Comment(s): Abdomen soft, nontender, nondistended. No organomegaly. Active bowel sounds present 4 quadrants. Tolerating diet. - Genitourinary Genitourinary Comment(s): Continues to void - Integumentary Integumentary Comment(s): Skin is warm and dry with evidence of good perfusion - Neurologic Neurologic: Present: CNII-XII intact - Musculoskeletal Musculoskeletal: Present: gait normal, strength equal bilaterally - Psychiatric Psychiatric: Present: A&O x's 3, appropriate affect, intact judgment & insight - Allied health notes Allied health notes reviewed: nursing - Labs CBC & Chem 7: 01/14/20 09:37 01/14/20 09:37 Labs: Abnormal Lab Results - Last 24 Hours (Table) 01/13/20 01/14/20 01/14/20 Range/Units 07:00 09:37 09:37 Plt Count 461 H (150-450) k/uL Lymphocytes # 0.8 L (1.0-4.8) k/uL Chloride 109 H (98-107) mmol/L BUN 19 H (7-17) mg/dL Ferritin 1157.6 H (10.0-291.0) ng/mL AST 45 H (14-36) U/L ALT 44 H (4-34) U/L Total Protein 6.1 L (6.3-8.2) g/dL Albumin 3.1 L (3.5-5.0) g/dL Microbiology - Last 24 Hours (Table) 01/10/20 12:04 Blood Culture - Preliminary Blood No Growth after 72 hours - Imaging and Cardiology Chest x-ray: report reviewed, image reviewed Assessment and Plan Assessment: #1. Acute COVID 19 related pneumonia, recovering #2. Possible superimposed bacterial pneumonia, community-acquired #3. Dyspnea, febrile illness, dry cough related to the above #4. Hypertension #5. Hyperlipidemia #6. Diabetes pulses type II #7. Obesity #8. Osteoarthritis #9. Lifetime nonsmoker #10. History of bilateral breast cancer, status post bilateral mastectomy and chemo and radiation in 2013 Plan: The patient was seen and evaluated by Dr. Molina Chest x-ray and labs reviewed. Repeat chest x-ray in the morning Continue Plaquenil, ceftriaxone and zinc Continue Lovenox We'll continue to follow and make further recommendations based on her clinical status I, the cosigning physician, performed a history & physical examination of the patient. Lungs sounds are diminished bilaterally with crackles in the bases. Maintaining good O2 saturations in the 90s on 2 L nasal cannula. I discussed the assessment and plan of care with my nurse practitioner, Carolyn Garcia. I attest to the above note as dictated by her. Time with Patient: Greater than 30
[2020-01-14] MEDS: ATORVASTATIN 10 MG TAB PO SCH (20:22)
[2020-01-14] MEDS: ATENOLOL 25 MG TAB PO SCH (20:22)
[2020-01-15] MEDS: HYDROXYCHLOROQUINE SULFATE 200 MG TAB PO SCH (07:45)
[2020-01-15] MEDS: EXEMESTANE 25 MG PO SCH (07:45)
[2020-01-15] MEDS: MULTIVITAMINS, THERA 1 EACH TAB PO SCH (07:45)
[2020-01-15] MEDS: ZINC SULFATE 220 MG CAP PO SCH (07:45)
[2020-01-15] MEDS: PANTOPRAZOLE 40 MG TABLET PO SCH (07:45)
[2020-01-15] MEDS: ENOXAPARIN 40 MG/0.4 ML SYRINGE SQ SCH (07:46)
--- NOTE | 2020-01-15 07:49 | XR ---
EXAMINATION TYPE: XR chest 1V portable DATE OF EXAM: 01/15/2020 COMPARISON: 01/14/2020 HISTORY: Cough possible pneumonia TECHNIQUE: Single frontal view of the chest is obtained. FINDINGS: Multifocal areas of consolidation are seen interstitial pattern. Nodularity not excluded. No pleural effusion or pneumothorax. Heart size stable. IMPRESSION: Multifocal infiltrates correlate for multifocal pneumonia or atypical pneumonia. Underly ing neoplasm not excluded. Follow-up to resolution.
[2020-01-15] MEDS ORDERED: LOSARTAN-HCTZ 50-12.5 MG 1 EACH TAB PO SCH (09:00)
[2020-01-15] MEDS: LOPERAMIDE 2 MG CAP PO PRN (10:17)
--- NOTE | 2020-01-15 11:13 | P.PN ---
Subjective Progress Note Date: 01/15/20 Principal diagnosis: Covid 19 pneumonia 74-year-old white female patient with past medical history of hypertension, hyperlipidemia, diabetes mellitus type 2, osteoarthritis, lifetime nonsmoker, bilateral breast cancer status post bilateral mastectomy and chemoradiation therapy in 2012, who was in the emergency department on 01/04/2020 with complaints of cough and fever of 5 day duration. Her vitals were stable then, she was on room air, chest x-ray showed no acute process, and patient was discharged home on azithromycin. Patient was not tested for COVID 19. Patient does admit to being exposed to coronavirus, her neighbor was hospitalized for 5 days with Covid 19 infection, and apparently she did come over to visit. On 01/10/2020 patient came in with shortness of breath, persistent fevers, dry cough, not feeling well. No nausea vomiting or diarrhea no conjunctival symptoms. Her chest x-ray showed increased interstitial prominence, no pleural effusions, cannot exclude developing multifocal mid lung infiltrates. Blood work showed normal white count of 5.1, lymphopenia at 0.7, d-dimer was 0.87, sodium was 1:30, potassium 3.9, CO2 was 19, B1 is 22, creatinine is 1.08, ferritin was elevated 1382, plasma lactic acid was 0.9, AST was 70, ALT was 33, alkaline phosphatase 75, LDH was 1207, C-reactive protein was 145, protein acetone was also elevated to 0.70, influenza screen was negative, coronavirus was detected on the PCR test. T-max in the last 24 hours was 10 3F, patient is currently on 2 L of oxygen the pulse ox of 95%, hemodynamically stable, she has a persistent dry cough, and shortness of breath with exertion. Lung sounds reveal coarse crackles in bilateral bases, patient has been started on a combination of antibiotics, including ceftriaxone and doxycycline, and Plaquenil. The patient is seen today 01/12/2020 in follow-up on the regular medical floor. She is currently awake and alert in no acute distress. She denies any worsening shortness of breath, cough or congestion. She is maintaining O2 saturations in the 90s on 2 L/m per nasal cannula. Chest x-ray reveals bilateral patchy infiltrates slightly worse today. Blood culture reveals no growth to date. D- dimer 1.26. C-reactive protein 84. She is continued on ceftriaxone, Plaquenil, zinc. She continues with a loose nonproductive cough. She was nauseated from the Robitussin with codeine. The patient is seen today 01/13/2020 in follow-up on the regular medical floor. She remains awake and alert in no acute distress. She states her breathing is better compared to yesterday. She is coughing less. She is still maintaining O2 saturations in the low 90s on 2 L/m per nasal cannula. Currently afebrile. Hemodynamically stable. Her chest x-ray however is showing worsening bilateral infiltrates. Evidence of cardiomegaly. Small left effusion. D-dimer up slight ly to 1.32. LDH 903. C-reactive protein 75. Both trending down. She is having issues with diarrhea. She is on Imodium as needed. She remains on ceftriaxone, hydroxychloroquine, zinc. She remains on Lovenox for DVT prophylaxis. On 01/15/2020 patient seen in follow-up on general medical floor, she is calm and comfortable, resting in bed, she is currently on 2 L of oxygen with pulse ox of 95%, she is afebrile, hemodynamically patient is stable, respirations are even and nonlabored, no complaints of cough, her breathing is improving. She is completing her course of Plaquenil, and Rocephin, and zinc sulfate. Clinically improving, today's chest x-ray has been reviewed still show multifocal infiltrates related to multifocal pneumonia secondary to "19 infection Objective - Vital Signs Vital signs: Vital Signs Temp 98.2 F 01/15/20 07:00 Pulse 53 L 01/15/20 08:00 Resp 17 01/15/20 08:00 BP 138/72 01/15/20 07:00 Pulse Ox 95 01/15/20 07:00 Intake & Output 01/14/20 01/15/20 01/15/20 18:59 06:59 18:59 Intake Total 750 Balance 750 Weight 100.698 kg Intake: Intake, IV Titration 50 Amount cefTRIAXone 1 gm In 50 Sodium Chloride 0.9% 50 ml @ 100 mls/hr IVPB Q24HR [facility] Rx#:[id number] Oral 700 Other: Voiding Method Toilet Toilet # Voids 2 2 # Bowel Movements 2 - Exam GENERAL EXAM: Alert, very pleasant, 74-year-old white female, resting comfortably in bed, she is currently on 2 L of oxygen comfortable in no apparent distress. HEAD: Normocephalic/atraumatic. EYES: Normal reaction of pupils, equal size. Conjunctiva pink, sclera white. NOSE: Clear with pink turbinates. THROAT: No erythema or exudates. NECK: No masses, no JVD, no thyroid enlargement, no adenopathy. CHEST: No chest wall deformity. Symmetrical expansion. LUNGS: Equal air entry with no crackles, wheeze, rhonchi or dullness. CVS: Regular rate and rhythm, normal S1 and S2, no gallops, no murmurs, no rubs ABDOMEN: Soft, nontender. No hepatosplenomegaly, normal bowel sounds, no guarding or rigidity. EXTREMITIES: No clubbing, no edema, no cyanosis, 2+ pulses and upper and lower extremities. MUSCULOSKELETAL: Muscle strength and tone normal. SPINE: No scoliosis or deformity SKIN: No rashes CENTRAL NERVOUS SYSTEM: Alert and oriented -3. No focal deficits, tone is normal in all 4 extremities. PSYCHIATRIC: Alert and oriented -3. Appropriate affect. Intact judgment and insight. - Labs CBC & Chem 7: 01/14/20 09:37 01/14/20 09:37 Labs: Abnormal Lab Results - Last 24 Hours (Table) 01/13/20 Range/Units 07:00 Ferritin 1157.6 H (10.0-291.0) ng/mL Microbiology - Last 24 Hours (Table) 01/10/20 12:04 Blood Culture - Preliminary Blood No Growth after 96 hours Assessment and Plan Plan: Assessment: #1. Acute COVID 19 related pneumonia #2. Possible superimposed bacterial pneumonia, community-acquired #3. Dyspnea, persistent febrile illness, dry cough related to the above #4. Hypertension #5. Hyperlipidemia #6. Diabetes pulses type II #7. Obesity #8. Osteoarthritis #9. Lifetime nonsmoker #10. History of bilateral breast cancer, status post bilateral mastectomy and chemo and radiation in 2012 Plan: Patient continues to improve, we'll obtain home oxygen assessment. She is complaining her antibiotics and Plaquenil. No worsening shortness of breath or cough, she's been afebrile, increase activity as tolerated, from pulmonary perspective she can be considered for discharge home today she will need follow- up retest for Covid 19 infection in 2 weeks or when she is completely asymptomatic. She will need to follow-up with her PCP. I performed a history & physical examination of the patient and discussed their management with my nurse practitioner, Echo Sanchez. I reviewed the nurse practitioner's note and agree with the documented findings and plan of care. Lung sounds are positive for bilateral crackles. The findings and the impression was discussed with the patient. I attest to the documentation by the nurse practitioner. Time with Patient: Less than 30
--- NOTE | 2020-01-15 12:10 | P.DS ---
Providers Date of admission: 01/10/20 13:43 Expected date of discharge: 01/15/20 Attending physician: Ny Bermeo Consults: 01/10/20 13:42 Consult Physician Urgent Consulting Provider: Radha Masters Consult Reason/Comments: COVID, dyspnea Do you want consulting provider notified?: Yes Primary care physician: [facility] Course: This is a 74-year-old female patient of Dr. Swann with past medical history of hypertensive hypertensive cardiovascular disease, hyperlipidemia, right-sided breast cancer status post right lumpectomy followed by radiation therapy and subsequently had left breast cancer in 2005 with bilateral mastectomy and left side in 2005 with chemotherapy, osteoarthritis. Patient complains of having a fever for one week. She initially presented to the emergency center on January 03 and was given Zithromax and discharged home. She continued to have fever after course of antibiotics were completed. Yesterday she woke up with shortness of breath and not feeling well. No chest pain or palpitations. No headache no numbness, weakness. No nausea vomiting or diarrhea. Denies any conjunctival symptoms. The patient felt that she was disoriented. She states that her urine was very dark and she was having a hard time drinking very much. She complains of cough and nausea. She has COVID-19 exposure with her neighbor that was documented positive for couple weeks ago. She denies ever seeing a pulmonary doctor in the past. She does not utilize oxygen or nebulizers at home. She denies any alcohol or smoking history. Patient presented to [facility] emergency center for evaluation. Temperature 100.9, heart rate 101, blood pressure 116/74. EKG was a sinus rhythm with no acute ST changes. Chest x-ray revealed CBC unremarkable, lymphocytes low at 0.7. Sodium 130, potassium 3.9, chloride 98, CO2 19, BUN 22 and creatinine 1.08, blood sugar 103. D-dimer 0.87. Influenza testing negative. COVID-19 positive. Lactic acid 0.9, proBNP 169. LDH 1207, C-reactive protein 145.9. Albumin 3.9. Chest x-ray reveals correlate for overload state or CHF exacerbation, mild cardiomegaly with new mild interstitial edema. Cannot exclude developing multifocal mid lung infiltrates. Patient started on ceftriaxone, Plaquenil, inhalers, consult with Dr. Sonam and patient admitted to the [facility] floor. 01/11: Patient is feeling slightly but better developed to have significant gastrointestinal symptoms such as diarrhea with her current cough and shortness of breath, hypoxia as well treated, low-grade temperature has improved significantly on current management. Patient was started on Plaquenil but no azithromycin. Medically very stable at this point. 01/12: Patient is feeling much better she still having mild nausea to the Plaquenil but no more diarrhea at this point, hypoxia has improved significantly she is down to 2 L on O2 pulse ox running over 95 percentile. No for low-grade temperature and her cough has improved significantly. 01/13: Patient has been afebrile, heart rate in the 50s and 60s, blood pressure 144/74, pulse ox 91% on 2 L nasal cannula. Repeat lab work reveals WBC 6.3, hem oglobin 11.5, platelet count 461. Sodium 140, potassium 3.9, chloride 109, CO2 23, BUN 19 and creatinine 0.7. Total bilirubin 1.1, AST 45, ALT 44. Repeat chest x-ray reveals scattered alveolar infiltrates throughout both lung andrews persists with slight improvement. The patient feels that she is slowly improving and feels much better over the weekend. Patient will be completing course of Plaquenil tomorrow. Anticipate discharge home tomorrow. 01/14: Pulse ox today is at 95-97% on 2 L nasal cannula, patient is been afebrile, heart rate 53, blood pressure 138/72. Repeat chest x-ray reveals multifocal infiltrates correlate for multifocal pneumonia or atypical pneumonia. Underlying neoplasm not excluded. Blood cultures no growth at 96 hours. Patient's respiratory status is currently stable and much improved since admission. Patient will be discharged home today in stable condition. Discharge diagnoses: 1. Acute COVID-19 infection with pneumonia. 2. Hypertension, hypertensive cardiovascular disease. 4. History of breast cancer status post bilateral mastectomy. 5. Acute GI symptoms with diarrhea is likely secondary to Covid 19 infection. Discharge plan: Home Impression and plan of care have been directed as dictated by the signing physician. Marilyn Fleming nurse practitioner acting as scribe for signing physician. Patient Condition at Discharge: Good Plan - Discharge Summary Discharge Rx Participant: No New Discharge Prescriptions: New Loperamide [Imodium] 2 mg PO QID PRN cap PRN Reason: Diarrhea Continue Lovastatin [Mevacor] 40 mg PO HS Losartan/Hydrochlorothiazide [Losartan-Hctz 100-25 mg Tab] 1 tab PO QAM Atenolol [Tenormin] 25 mg PO HS Exemestane 25 mg PO QAM Multivit-Min/Iron/Folic/Lutein [Centrum Silver Women Tablet] 1 tab PO DAILY Discharge Medication List Atenolol [Tenormin] 25 mg PO HS 05/01/14 [History] Losartan/Hydrochlorothiazide [Losartan-Hctz 100-25 mg Tab] 1 tab PO QAM 05/01/14 [History] Lovastatin [Mevacor] 40 mg PO HS 05/01/14 [History] Exemestane 25 mg PO QAM 02/19/15 [History] Multivit-Min/Iron/Folic/Lutein [Centrum Silver Women Tablet] 1 tab PO DAILY 01/10/20 [History] Loperamide [Imodium] 2 mg PO QID PRN cap 01/15/20 [Rx] Follow up Appointment(s)/Referral(s): Radha Masters MD [STAFF PHYSICIAN] - 1 Week (Please call office to set up telehealth appointment) Hosea Swann DO [Primary Care Provider] - 01/23/20 10:45 am (office will call at this time with a Telephone appointment. Do not go to office) Patient Instructions/Handouts: Viral Pneumonia (DC) Discharge Disposition: HOME SELF-CARE
[2020-01-15 12:49] VITALS: BP 142/65; PULSE 58; RESP 18; TEMP 98.3
== END 2020-01-15 12:51 | disposition home or self-care (01) | DRG 177 ==
LOC: EC 10:58 → 4SSUR 13:43
PROVIDERS: ADMIT Family Medicine; ATTEND Family Medicine
DX: U07.1 COVID-19 (principal); J12.89 Other viral pneumonia; J15.6 Pneumonia due to other Gram-negative bacteria; E11.9 Type 2 diabetes mellitus without complications; E66.9 Obesity, unspecified; Z68.36 Body mass index [BMI] 36.0-36.9, adult; E78.5 Hyperlipidemia, unspecified; I11.9 Hypertensive heart disease without heart failure; M19.90 Unspecified osteoarthritis, unspecified site; R09.02 Hypoxemia; Z79.811 Long term (current) use of aromatase inhibitors; Z79.899 Other long term (current) drug therapy; Z80.0 Family history of malignant neoplasm of digestive organs; Z80.6 Family history of leukemia; Z85.3 Personal history of malignant neoplasm of breast; Z90.13 Acquired absence of bilateral breasts and nipples; Z92.21 Personal history of antineoplastic chemotherapy; Z92.3 Personal history of irradiation; R19.7 Diarrhea, unspecified; Z96.653 Presence of artificial knee joint, bilateral
CPT/HCPCS: 36415; 71045; 80053; 82728; 83605; 83615; 83625; 83735; 83880; 84145; 85025; 85379; 85610; 85730; 86140; 87040; 87502; 87635; 93005; 94640; 96365; 96366; 99285

== ENCOUNTER 2021-01-20 07:07 | Day surgery (SDC) | payer MEDICARE ==
[2021-01-16 11:42] VITALS: BMI 37.4
[~2021-01-20 07:07] MED LIST changes: -DEXAMETHASONE SOD PHOSPHATE 10 MG/ML 1 ML VIAL IV ONE; -HYDROmorphone 0.5 MG/0.5 ML SYRINGE IVP PRN; +LIDOCAINE 1% (10MG/ML) FOR IV START INTRADERMA PRN; -LIDOCAINE 1% 20 ML VIAL (10MG/ML) FOR IV START INTRADERMA PRN; -ONDANSETRON 4 MG/2 ML VIAL IVP ONE; -Pre Op ABX Message 1 EACH MISC MISCELLANE ONE
[2021-01-20 07:40] LABS: Glucose,Whole Blood 104 mg/dL (75-99)
[2021-01-20 07:44] VITALS: TEMP 98.2
[2021-01-20] MEDS ORDERED: LACTATED RINGERS 1,000 ML IV ONE (07:44)
[2021-01-20] MEDS ORDERED: PROPOFOL 10 MG/ML 20 ML VIAL IV ONE (08:00)
--- NOTE | 2021-01-20 08:04 | P.GSHP ---
History of Present Illness H&P Date: 01/20/21 Chief Complaint: colon cancer screening 75-year-old female here today for colonoscopy. Last colonoscopy 5 years ago. Patient with personal history of polyps. Father with history of colon cancer. Past Medical History Past Medical History: Cancer, Diabetes Mellitus, Hyperlipidemia, Hypertension, Osteoarthritis (OA), Pneumonia Additional Past Medical History / Comment(s): 2005 R breast cancer with lumpectomy/radiation/mastectomy, 2012 L breast cancer with mastectomy, pre-diabetes- diet controlled , PT STATES SHE HAS POISON DAVID-RASH AND SWELLING, IS TAKING PREDNISONE, INSTRUCTED TO CALL DR SUNSHINE OFFICE ON Tuesday01/19/21 IF ANY SYMPTOMS. History of Any Multi-Drug Resistant Organisms: None Reported Past Surgical History: Adenoidectomy, Breast Surgery, Cholecystectomy, Joint Replacement, Orthopedic Surgery, Tonsillectomy Additional Past Surgical History / Comment(s): Bilateral breast biopsies, R breast lumpectomy/mastectomy, L breast mastectomy, port since removed, bilateral knee arthroscopies, bilateral total knee replacements, L rotator cuff repair, hysteroscopy/D&Cs, colposcopy/cyro for abnormal pap smear, rectal sphincter muscle surgery, hemorrhoidectomy, colonoscopies. Past Anesthesia/Blood Transfusion Reactions: Postoperative Nausea & Vomiting (PONV) Additional Past Anesthesia/Blood Transfusion Reaction / Comment(s): Pt states they have had a hard time with her blood pressure dropping during one surgery. Past Psychological History: Anxiety Additional Psychological History / Comment(s): . Smoking Status: Never smoker Past Alcohol Use History: None Reported Additional Past Alcohol Use History / Comment(s): . Past Drug Use History: None Reported - Past Family History Father Family Medical History: Cancer Additional Family Medical History / Comment(s): COLON CANCER Mother Family Medical History: Cancer Additional Family Medical History / Comment(s): CLL Brother(s) Family Medical History: Cancer Additional Family Medical History / Comment(s): Patient has 1 brother and he has history of prostate cancer. Sister(s) Family Medical History: Cancer Additional Family Medical History / Comment(s): Patient has 2 sisters and one sister has history of skin cancer, second sister has history of lung cancer. Daughter(s) Family Medical History: No Reported History Additional Family Medical History / Comment(s): Patient has one daughter with no major medical problems. Son(s) Family Medical History: No Reported History Additional Family Medical History / Comment(s): Patient has one son with no major medical problems. Medications and Allergies Home Medications Medication Instructions Recorded Confirmed Type Losartan/Hydrochlorothiazide 1 tab PO QAM 05/01/14 01/16/21 History [Losartan-Hctz 100-25 mg Tab] Lovastatin [Mevacor] 40 mg PO HS 05/01/14 01/16/21 History atenoloL [Tenormin] 25 mg PO HS 05/01/14 01/16/21 History Cholecalciferol [Vitamin D3 (10 10 mcg PO DAILY 01/16/21 01/16/21 History Mcg = 400 Iu)] Exemestane [Aromasin] 25 mg PO DAILY 01/16/21 01/16/21 History LORazepam [Ativan] 1 mg PO TID PRN 01/16/21 01/16/21 History Multivit with Calcium,Iron,Min 1 tab PO DAILY 01/16/21 01/16/21 History [Women's Multivitamin] Prednisone Dose Pack 20 mg PO DIRECTED PRN 01/16/21 History Allergies Allergy/AdvReac Type Severity Reaction Status Date / Time poison david extract Allergy Unknown RASH,SWELLI Verified 01/16/21 11:19 NG adhesive tape Allergy Rash/Hives Verified 01/16/21 10:56 Surgical - Exam Vital Signs Temp Pulse Resp BP Pulse Ox 98.2 F 66 18 167/79 97 01/20/21 07:42 01/20/21 07:42 01/20/21 07:42 01/20/21 07:42 01/20/21 07:42 Physical exam: General: Well-developed, well-nourished HEENT: Normocephalic, sclerae nonicteric Abdomen: Nontender, nondistended Extremities: No edema Neuro: Alert and oriented Results - Labs Abnormal Lab Results - Last 24 Hours (Table) 01/20/21 Range/Units 07:38 POC Glucose (mg/dL) 104 H (75-99) mg/dL Assessment and Plan (1) Colon cancer screening Narrative/Plan: Will proceed with colonoscopy Current Visit: Yes Status: Acute Code(s): Z12.11 - ENCOUNTER FOR SCREENING FOR MALIGNANT NEOPLASM OF COLON SNOMED Code(s): 438627182
--- NOTE | 2021-01-20 08:24 | P.PCN ---
Date of Procedure: 01/20/21 Procedure(s) Performed: PREOPERATIVE DIAGNOSIS: colon cancer screening, father with colon cancer POSTOPERATIVE DIAGNOSIS: diverticulosis PROCEDURE: Colonoscopy ANESTHESIA: MAC SURGEON: Brayden Bedolla M.D. SPECIMENS: ENDOSCOPIC PROCEDURE: The patient was placed on the endoscopy table in the left decubitus position. The Olympus colonoscope was inserted into the anus and passed under direct visualization to the base of the cecum. The appendiceal orifice was visualized. From that point the scope was slowly withdrawn inspecting all surfaces carefully. There were no neoplastic inflammatory or polypoid lesions throughout the cecum, ascending, transverse, descending, sigmoid and rectum. There was mild left-sided diverticulosis noted. Digital rectal examination was normal. The patient was taken to the recovery room in stable condition per anesthesia guidelines. RECOMMENDATIONS: resume diet. Follow-up colonoscopy 5 years.
[2021-01-20 08:54] VITALS: BP 146/72; PULSE 65; RESP 18
== END 2021-01-20 09:05 | disposition home or self-care (01) ==
LOC: ORWHC2ENDO 07:07
PROVIDERS: ATTEND Surgery
DX: Z12.11 Encounter for screening for malignant neoplasm of colon (principal); Z80.0 Family history of malignant neoplasm of digestive organs; K57.30 Diverticulosis of large intestine without perforation or abscess without bleeding; K21.9 Gastro-esophageal reflux disease without esophagitis; R73.03 Prediabetes; I10 Essential (primary) hypertension; E78.5 Hyperlipidemia, unspecified; M19.90 Unspecified osteoarthritis, unspecified site; Z85.3 Personal history of malignant neoplasm of breast; F41.9 Anxiety disorder, unspecified; Z79.899 Other long term (current) drug therapy; Z91.09 Other allergy status, other than to drugs and biological substances
CPT/HCPCS: J2704; G0105

== ENCOUNTER → 2022-03-03 | Outpatient (CLI) | payer MEDICARE ==
--- NOTE | 2022-03-04 03:45 | MR ---
EXAMINATION TYPE: MR shoulder RT wo con DATE OF EXAM: 03/03/2022 COMPARISON: None HISTORY: Pain in right shoulder Multiplanar multi echo imaging of the right shoulder without contrast. There is severe narrowing of t he shoulder joint space with extensive spurring on the inferior aspect of the humeral head. There is a 1.8 cm osteophyte. The AC joint is intact. There is fluid in the subdeltoid bursa. There is shoulde r joint effusion. There is some thickening and increased signal in the supraspinatus tendon. There is full-thickness tear of the tendon at the superior aspect of the humeral head. No retraction. There i s subchondral edema in the humeral head. There is similar change in the glenoid. The biceps tendon is intact. Subscapularis tendon is intact. No evidence of glenoid labral tear. No f racture seen. IMPRESSION: Moderately severe osteoarthritis. There is a small full-thickness tear of the supraspinatus tendon wi thout retraction. There is mild shoulder joint effusion and subdeltoid effusion. Subchondral edema and cystic change on both sides of the shoulder joint. Hypertrophic spurring at the AC joint without significant subacromial impingement.
== END | disposition home or self-care (01) ==
LOC: RADMRIMAIN 12:32
PROVIDERS: ATTEND Orthopaedic Surgery
DX: M19.011 Primary osteoarthritis, right shoulder (principal); M75.121 Complete rotator cuff tear or rupture of right shoulder, not specified as traumatic; M85.612 Other cyst of bone, left shoulder; M85.611 Other cyst of bone, right shoulder

== ENCOUNTER 2022-04-22 10:54 | Day surgery (SDC) | payer MEDICARE ==
[2022-04-21 13:19] VITALS: BMI 37.0
--- NOTE | 2022-04-21 15:42 | HP ---
HISTORY AND PHYSICAL REASON FOR ADMISSION: Surgery scheduled for 04/22/2022 HISTORY OF PRESENT ILLNESS: Nicole Harley is a 77-year-old patient seen with progressive right shoulder pain. We discussed options for treatment. She elected to proceed with right shoulder arthroscopy. Consent was obtained. Clearance was provided by Dr. Hosea Swann. PAST MEDICAL HISTORY: Hypertension, hyperlipidemia. PAST SURGICAL HISTORY: Breast surgery, cholecystectomy, rotator cuff repair. DAILY MEDICATIONS: Atenolol, lovastatin, losartan, Tylenol. ALLERGIES: None. SOCIAL HISTORY: She denies tobacco use. PHYSICAL EVALUATION OF THE RIGHT SHOULDER: Flexion is 90 degrees, abduction is 80 degrees. External rotation is 30 degrees with pain and weakness. Tenderness along the anterior lateral acromion and rotator cuff insertion site. Impingement positive at 80 degrees. Cross body adduction sign is positive. Drop-arm sign is positive. Distal neurovascular exam is intact. RADIOGRAPHS: Radiographs of the right shoulder revealed a type 2 acromion, evidence for acromioclavicular joint osteoarthritis. Glenohumeral joint osteoarthritis. Right shoulder MRI revealed glenohumeral osteoarthritis and rotator cuff tear. IMPRESSION: 1. Right shoulder impingement with rotator cuff tear. 2. Right shoulder glenohumeral osteoarthritis. 3. Hypertension. 4. Hyperlipidemia. PLAN: Right shoulder arthroscopy with subacromial decompression, arthroscopic rotator cuff repair and debridement. Surgery scheduled 04/22/2022. MMODL / IJN: [id number] /
[~2022-04-22 10:54] MED LIST changes: +DEXAMETHASONE SOD PHOSPHATE 4 MG/ML 1 ML VIAL IV ONE; +HYDROmorphone 0.5 MG/0.5 ML SYRINGE IVP PRN; +ONDANSETRON 4 MG/2 ML VIAL IVP ONE; +ONDANSETRON 4 MG/2 ML VIAL IVP PRN
[2022-04-22 11:45] LABS: Glucose,Whole Blood 110 mg/dL (70-110)
[2022-04-22] MEDS ORDERED: fentaNYL (PF) 50 MCG/ML 2 ML AMP IVP ONE (12:03)
[2022-04-22] MEDS ORDERED: MIDAZOLAM 2 MG/2 ML VIAL IVP ONE (12:03)
--- NOTE | 2022-04-22 12:14 | P.ANPRN ---
Procedure Note - Anesthesia - Nerve Block Performed Right Interscalene Time Out Performed: Yes (12:02) Date of Procedure: 04/22/22 Procedure Start Time: : Procedure Stop Time: : Location of Patient: PreOp Indication: Acute Post-Operative Pain, Requested by Surgeon (Dr Scruggs) Sedation Type: Sedate with meaningful contact maintained Preparation: Sterile Prep Position: Supine Catheter: None Needle Types: Pajunk Needle Gauge: Other (see comment) (22g) Ultrasound used to visualize needle placement: Yes Ultrasound used to observe medication spread: Yes Injectate: 0.5% Ropivacaine (see comment for volume) (20cc) Blood Aspirated: No Pain Paresthesia on Injection Noted: No Resistance on Injection: Normal Image Stored and Saved: Yes Events: Uneventful and Well Tolerated
[2022-04-22] MEDS ORDERED: fentaNYL (PF) 50 MCG/ML 2 ML AMP ONE (12:31)
[2022-04-22] MEDS ORDERED: PROPOFOL 10 MG/ML 20 ML VIAL IV ONE (12:31)
[2022-04-22] MEDS ORDERED: ROPIVACAINE 5 MG/ML 30 ML VIAL ONE (12:31)
[2022-04-22] MEDS ORDERED: SUCCINYLCHOLINE CHLORIDE 100 MG/5 ML SYR IV ONE (12:31)
[2022-04-22] MEDS ORDERED: PHENYLEPHRINE-0.9% NACL SYG 1,000 MCG/10 ML SYRINGE ONE (12:31)
[2022-04-22] MEDS ORDERED: GLYCOPYRROLATE 0.2 MG/ML 2 ML VIAL ONE (12:31)
[2022-04-22] MEDS ORDERED: LIDOCAINE 2% INJ 20 MG/ML (2 ML VIAL) ONE (12:31)
[2022-04-22] MEDS ORDERED: MIDAZOLAM 2 MG/2 ML VIAL ONE (12:31)
[2022-04-22 14:04] VITALS: TEMP 96.8
--- NOTE | 2022-04-22 14:06 | P.OP ---
Date of Procedure: 04/22/22 Preoperative Diagnosis: Right shoulder impingement Postoperative Diagnosis: 1. Right shoulder impingement 2. Right shoulder partial long head biceps tendon tear 3. Right shoulder superficial labral tear 4. Right shoulder glenohumeral osteoarthritis 5. Right shoulder glenohumeral joint loose body Procedure(s) Performed: 1. Right shoulder arthroscopic subacromial decompression 2. Right shoulder arthroscopic biceps tenotomy 3. Right shoulder arthroscopic debridement labral tear 4. Right shoulder arthroscopic removal loose body Anesthesia: GETA, regional (Interscalene block) Surgeon: Humphrey Scruggs Estimated Blood Loss (ml): 7 Pathology: none sent Condition: stable Disposition: PACU Indications for Procedure: 77-year-old patient seen with progressive right shoulder pain. After treatment options were discussed with her, she elected to proceed with arthroscopy. Operative Findings: See description of procedure Description of Procedure: Patient underwent an interscalene block by department of anesthesia. The patient was then taken to the operative suite. The patient underwent a general anesthetic by the department of anesthesia. The patient was placed into a lateral position and secured. There was appropriate padding of the bony prominence. Right shoulder was then prepped and draped in normal sterile orthopedic fashion. We placed the extremity in 10 pounds of longitudinal traction. A posterior incision was now made for a posterior working portal site. The trocar and cannula were inserted into the glenohumeral joint. Arthroscopy was initiated. Spinal needle was now inserted anteriorly, to ascertain the anterior working portal site. An incision was now made in that area, a trocar was inserted followed by a probe. There were advanced osteoarthritic changes/grade 4 chondromalacia involving both the humeral head and glenoid fossa. I immediately encountered a loose body. I introduced a pituitary and retrieved that without difficulty. There was partial tearing of the long head biceps tendon. There was superficial tearing of the superior and anterior labrum. I performed an arthroscopic biceps tenotomy. I debrided out the superficial labral tears getting down to stable labral tissue. The residual labrum was probed and was found to be stable. Again we noted significant grade 4 osteoarthritic changes of the glenohumeral joint. Instruments now removed from glenohumeral joint. Utilizing the posterior working portal site, the trocar and cannula were inserted into the subacromial space. Arthroscopy initiated. I made an incision 2 fingerbreadths lateral to the acromion. I introduced my trocar followed by my [employer] ablator. I now began ablating thick subacromial bursal tissue, which exposed the undersurface of the anterior acromion. There was diminished subacromial space. There was a very prominent anterior acromion. A motorized bur was introduced and a subacromial decompression was performed. I also excised some osteophytes off the inferior aspect of the distal clavicle. The AC joint was visualized and noted to be moderately arthritic. I did not think enough toward a Mary Beth procedure. I turned my attention to the rotator cuff tendon. There was some partial tearing along the distal supraspinatus. I debrided that out getting down to stable tendon tissue. I thoroughly probed the area and noted good residual tendon tissue with no evidence of a full-thickness perforation. Instruments now removed from the portal sites. All portal sites were approximated with nylon suture. Sterile dressings were applied followed by a shoulder sling. The patient was awakened, transferred to a bed, and taken to recovery in stable condition.
[2022-04-22 14:45] VITALS: RESP 16
[2022-04-22 15:54] VITALS: PULSE 69
[2022-04-22 16:06] VITALS: BP 129/73
== END 2022-04-22 16:25 | disposition home or self-care (01) ==
LOC: OR 10:54
PROVIDERS: ATTEND Orthopaedic Surgery
DX: M75.111 Incomplete rotator cuff tear or rupture of right shoulder, not specified as traumatic (principal); S43.431A Superior glenoid labrum lesion of right shoulder, initial encounter; M19.011 Primary osteoarthritis, right shoulder; M24.011 Loose body in right shoulder; M94.211 Chondromalacia, right shoulder; G89.18 Other acute postprocedural pain; X58.XXXA Exposure to other specified factors, initial encounter; I10 Essential (primary) hypertension; E11.69 Type 2 diabetes mellitus with other specified complication; E78.5 Hyperlipidemia, unspecified; F41.9 Anxiety disorder, unspecified; K21.9 Gastro-esophageal reflux disease without esophagitis; Z91.09 Other allergy status, other than to drugs and biological substances; Z79.899 Other long term (current) drug therapy; Z80.0 Family history of malignant neoplasm of digestive organs; Z80.42 Family history of malignant neoplasm of prostate; Z80.1 Family history of malignant neoplasm of trachea, bronchus and lung
CPT/HCPCS: 64415; 76942; 29827; 29826; J2250; J1100; J0690; J2405; J3010; J2795; J2370; J0330; J2704; J2001

== ENCOUNTER → 2022-07-23 | Outpatient (CLI) | payer MEDICARE ==
--- NOTE | 2022-07-26 07:38 | BD ---
EXAMINATION TYPE: Axial Bone Density DATE OF EXAM: 07/23/2022 COMPARISON: NONE CLINICAL HISTORY: 77 years year old Female. ICD-10 CODE: C50.112 CARCINOMA CENTRAL PORTION OF LT STEVE AST Height: 65 Weight: 218.7 FRAX RISK QUESTIONS: Alcohol (3 or more units per day): NO Family History (Parent hip fracture): NO Glucocorticoids (More than 3mos): NO History of Fracture in Adulthood: FOOT Secondary Osteoporosis: 1. Type 1 Diabetes: NO 2. Hyperthyroidism: NO 3. Menopause before 45: NO 4. Malnutrition: NO 5. Chronic liver disease: NO Rheumatoid Arthritis: NO Current Tobacco Use: NO RISK FACTORS HISTORY OF: Hip Fracture (Right/Left): NO Spine Fracture: NO History of Wrist Fracture: NO Surgery to Spine/Hip(right/left)/Wrist (right/left): NO Family History of Osteoporosis: NO Active: YES Diet low in dairy products/other sources of calcium: NO Postmenopausal woman: YES Take estrogen and/or progesterone medications: NO Lost more than 2 inches in height since high school: N0 Frequent falls: NO Poor Health: NO Hyperparathyroidism: NO Adrenal Insufficiency: NO MEDICATIONS: Prednisone or other steroids: NO Thyroid Medications: NO Osteoporosis Medications: NO Which medication: How Long: LOSARTAN, LOVASTATIN, ATENOLOL, EXEMESTANE, MULTI VIT, VIT D, Additional Medications: Additional History: BILATERAL BREAST CA. WITH CHEMO AND RADIATION EXAM MEASUREMENTS: Bone mineral densitometry was performed using the [employer] System. Bone mineral density as measured about the Lumbar spine is: ----- L1-L4(G/cm2): 1.373 T Score Values are as follows: ----- L1: 0.9 ----- L2: 2.5 ----- L3: 2.2 ----- L4: 0.7 ----- L1-L4: 1.6 Bone mineral density has: INCREASED 3.2 % since study of: 06/26/2020 Bone mineral density about the R hip (g/cm2): 1.064 Bone mineral density about the L hip (g/cm2): 1.102 T Score values are as follows: -----R Neck: 0.2 -----L Neck: 0.5 -----R Total: 0.8 -----L Total: 1.3 Bone mineral density has: DECREASED -0.4 % since study of: 06/26/2020 FRAX%s: The graph provided illustrates a 10.4% chance for a major osteoporotic fx and a 0.7% chance f or the hips probability for fx in 10 years time. IMPRESSION: Normal (Values between +1 and -1 indicate normal bone mass). Consider repeating this study in 5 year s or sooner if there is some new clinical indication. NOTE: T-SCORE=SD OF THE YOUNG ADULT MEAN.
== END | disposition home or self-care (01) ==
LOC: RADBDWWP 14:57
PROVIDERS: ATTEND Internal Medicine Hematology & Oncology
DX: C50.112 Malignant neoplasm of central portion of left female breast (principal); C50.411 Malignant neoplasm of upper-outer quadrant of right female breast; Z17.0 Estrogen receptor positive status [ER+]
CPT/HCPCS: 77080

== ENCOUNTER → 2023-01-06 | Outpatient (CLI) | payer MEDICARE | END | disposition home or self-care (01) | LOC: LABWHC1 09:36 | PROVIDERS: ATTEND Orthopaedic Surgery | DX: M19.011 Primary osteoarthritis, right shoulder (principal) | CPT/HCPCS: 87070 ==

== ENCOUNTER → 2023-06-20 | Outpatient (CLI) | payer MEDICARE ==
--- NOTE | 2023-06-20 14:10 | US ---
EXAMINATION TYPE: US pelvis complete transvag DATE OF EXAM: 06/20/2023 COMPARISON: US 08/08/2019 CLINICAL INDICATION: Female, 78 years old with history of C50.919 MALIGNANT NEOPLASM OF UNSP SITE OF UNSPECI; Pt states wanted follow-up endo TECHNIQUE: Transvaginal (TV) and Transabdominal (TA) . Transabdominal sonographic images of the pel vis were acquired. Transvaginal sonographic images were medically necessary to better assess the fol lowing anatomy: Endometrium Date of LMP: 1997 EXAM MEASUREMENTS: Uterus: 6.4 x 2.8 x 3.7 cm Endometrial Stripe: 0.5 cm Right Ovary: 1.7 x 1.0 x 1.5 cm 1. Uterus: Retroverted Hypoechoic area posterior to endometrium= 1.1 x 0.7 x 1.0 cm 2. Endometrium: wnl 3. Right Ovary: wnl 4. Left Ovary: Obscured by overlying bowel gas 5. Bilateral Adnexa: wnl 6. Posterior cul-de-sac: wnl IMPRESSION: 1. Hypoechoic 1.1 cm lesion posterior to the endometrium. Etiologies include submucosal fibroid vers us polyp versus endometrial carcinoma. Direct visualization is recommended. 2. Nonvisualization of left ovary due to overlying bowel gas.
== END | disposition home or self-care (01) ==
LOC: RADUSWWP 13:26
PROVIDERS: ATTEND Obstetrics & Gynecology
DX: C50.919 Malignant neoplasm of unspecified site of unspecified female breast (principal); N85.8 Other specified noninflammatory disorders of uterus; R14.0 Abdominal distension (gaseous)
CPT/HCPCS: 76830; 76856

== ENCOUNTER → 2023-08-22 | Outpatient (CLI) | payer MEDICARE | END | disposition home or self-care (01) | LOC: LABPAT 09:01 | PROVIDERS: ATTEND Obstetrics & Gynecology | DX: Z01.818 Encounter for other preprocedural examination (principal); I44.0 Atrioventricular block, first degree; I45.10 Unspecified right bundle-branch block; I45.2 Bifascicular block; I44.4 Left anterior fascicular block; R94.31 Abnormal electrocardiogram [ECG] [EKG]; R00.1 Bradycardia, unspecified | CPT/HCPCS: 93005 ==

== ENCOUNTER → 2023-08-26 | Outpatient (CLI) | payer MEDICARE ==
[2023-08-26 16:18] LABS: Basophils # (A) 0.05 X 10*3/uL (0.00-0.10); Basophils % (A) 0.6 %; Eosinophils # (A) 0.32 X 10*3/uL (0.04-0.35); Eosinophils % (A) 3.9 %; HGB 13.1 g/dL (12.0-15.0); Lymphocytes # (A) 2.09 X 10*3/uL (0.90-5.00); Lymphocytes % (A) 25.8 %; MCHC 32.8 g/dL (32.0-37.0); MCV 88.5 FL (80.0-97.0); Mean Platelet Volume 10.1 FL (9.5-12.2); Monocytes # (A) 0.56 X 10*3/uL (0.20-1.00); Monocytes % (A) 6.9 %; NRBC Per 100 WBC 0 X 10*3/uL (0.00-0.01); Neutrophils # (A) 5.06 X 10*3/uL (1.80-7.70); Neutrophils % (A) 62.4 %; Platelet Count 286 X 10*3/uL (140-440); RBC 4.52 X 10*6/uL (4.10-5.20); RDW 13.3 % (11.5-14.5); WBC 8.11 X 10*3/uL (4.50-10.00)
[2023-08-26 16:24] LABS: BUN/Creat Ratio 13.09 Ratio (12.00-20.00); Blood Urea Nitrogen 14.4 mg/dL (9.0-27.0); Calcium 10.6 mg/dL (8.7-10.3); Carbon Dioxide 26.7 mmol/L (21.6-31.8); Chloride 103 mmol/L (96-109); Glucose 122 mg/dL (70-110); Potassium 4.5 mmol/L (3.5-5.5); Sodium 141 mmol/L (135-145)
== END | disposition home or self-care (01) ==
LOC: LABWHC1 09:30
PROVIDERS: ATTEND Obstetrics & Gynecology
DX: Z01.812 Encounter for preprocedural laboratory examination (principal)
CPT/HCPCS: 36415; 80048; 85025; 86850; 86900; 86901

== ENCOUNTER → 2023-09-23 | Outpatient (CLI) | payer MEDICARE ==
[~2023-09-23] MED LIST changes: -DEXAMETHASONE SOD PHOSPHATE 4 MG/ML 1 ML VIAL IV ONE; +DOBUTamine DRIP for NUC MED 500 MG in DEXTROSE/WATER 1 250ML.BAG IV PRN; -HYDROmorphone 0.5 MG/0.5 ML SYRINGE IVP PRN; -LACTATED RINGERS 1,000 ML IV SCH; -LIDOCAINE 1% (10MG/ML) FOR IV START INTRADERMA PRN; -ONDANSETRON 4 MG/2 ML VIAL IVP ONE; -ONDANSETRON 4 MG/2 ML VIAL IVP PRN
--- NOTE | 2023-09-23 12:54 | CA ---
Dobutamine Stress Echocardiogram Report Nicole Harley Age: 78 Gender: F : 1945 Exam Date: 09/23/2023 10:18 Exam Location: [facility] Ordering Physician: Hosea Swann DO Referring Physician: RODRÍGUEZ Ream Cutter: YUNIEL, Technologist: Ht (in): 65 Wt (lb): 206 Procedure CPT: Indication: M79.89,M25.471 ICD-9 Codes: Rhythm: Patient History: Abnormal EKG per surgery Cardiac Medications: Medications in past 24 hours: Contrast: Definity Total Dose (mL): 6 Stress Results Protocol: Dobutamine Peak Dose (???g/kg/min): 20 Duration (min:sec): Atropine:(mg) Target HR: 122 Double Product: 11606 Resting HR: 62 Resting BP: 164 / 63 Peak HR: 134 Peak BP: 170 / 60 Max Predicted HR: 144 93 % Max Predicted HR Stress Summary: BP Response: Reason for Termination: Exceeded target heart rate (85% max predicted) Cardiac Symptoms: No Symptoms ECG Analysis Resting EKG: Normal sinus rhythm, Right bundle branch block Stress EKG: Non-diagnostic ECG response due to resting abnormalities Arrhythmia: Occasional PVCs Echo Analysis Base Echo Analysis: Normal resting echocardiogram. Low Echo Anaylsis: Normal wall motion Peak Echo Analysis: Normal wall thickening and motion Recovery Echo: Normal left ventricle systolic function MEASUREMENTS (Male/Female) Normal Values CONCLUSIONS 1. Nondiagnostic electrocardiographic response to dobutamine infusion secondary to baseline EKG abnormalities 2.Normal Dobutamine stress echocardiogram. Dr. Rasheeda Devine MD (Electronically Signed) Final Date: 23 September 2023 12:53
== END | disposition home or self-care (01) ==
LOC: RADNMMAIN 09:39
PROVIDERS: ATTEND Family Medicine
DX: R94.31 Abnormal electrocardiogram [ECG] [EKG] (principal)
CPT/HCPCS: 93351; Q9957

== ENCOUNTER → 2024-10-16 | Outpatient (CLI) | payer MEDICARE ==
--- NOTE | 2024-10-16 13:39 | BD ---
EXAMINATION TYPE: Axial Bone Density DATE OF EXAM: 10/16/2024 CLINICAL HISTORY: 79 years old Female. ICD-10 CODE: M81.0 AGE RELATED OSTEOPOROSIS , Additional Hist ory: Height: 64.25 Weight: 217.8 FRAX RISK QUESTIONS: Alcohol (3 or more units per day): no Family History (Parent hip fracture): no Glucocorticoids (More than 3mos): no (Ex: prednisone, prednisolone, methylprednisolone, dexamethasone, and hydrocortisone). History of Fracture in Adulthood: foot Secondary Osteoporosis: 1. Type 1 Diabetes: no 2. Hyperthyroidism: no 3. Menopause before 45: no 4. Malnutrition: no 5. Chronic liver disease: no Rheumatoid Arthritis: no Current Tobacco Use: no RISK FACTORS HISTORY OF: Hip Fracture (Right/Left): no Spine Fracture: no History of Wrist Fracture: no Surgery to Spine/Hip(right/left)/Wrist (right/left): no MEDICATIONS: Thyroid Medications: no Osteoporosis Medications: no EXAM MEASUREMENTS: Bone mineral densitometry was performed using the [employer] System. Bone mineral density as measured about the Lumbar spine is: ----- L1-L4(G/cm2): 1.343 T Score Values are as follows: ----- L1: 1.4 ----- L2: 1.6 ----- L3: 2.0 ----- L4: 0.5 ----- L1-L4: 1..4 Z Score Values are as follows: ----- L1: 2.0 ----- L2: 2.3 ----- L3: 2.7 ----- L4: 1.2 ----- L1-L4: 2.0 Bone mineral density has: decreased -2.2 % since study of: Bone mineral density about the R hip (g/cm2): 1.055 Bone mineral density about the L hip (g/cm2): 1.121 T Score values are as follows: -----R Neck: -0.3 -----L Neck: 0.4 -----R Total: 0.4 -----L Total: 0.9 Z Score values are as follows: -----R Neck: 1.0 -----L Neck: 1.7 -----R Total: 1.4 -----L Total: 2.0 Bone mineral density has: decreased -4.1 % since study of: 07/23/2022 FRAX%s: The graph provided illustrates a 12.2% chance for a major osteoporotic fx and a 1.2% chance f or the hips probability for fx in 10 years time. IMPRESSION: Normal (Values between +1 and -1 indicate normal bone mass). Consider repeating this study in 5 year s or sooner if there is some new clinical indication. NOTE: T-SCORE=SD OF THE YOUNG ADULT MEAN. [facility], , 10/16/2024 1:37 PM
== END | disposition home or self-care (01) ==
LOC: RADBDWWP 12:34
PROVIDERS: ATTEND Internal Medicine Hematology & Oncology
DX: M81.0 Age-related osteoporosis without current pathological fracture (principal)
CPT/HCPCS: 77080